=== PATIENT | male | born 1940 | race African-American/Black ===

== ENCOUNTER 2017-05-15 08:24 | Emergency (ER) | payer MEDICARE, OTHER ==
[~2017-05-15] VITALS: Ht 182.9 cm; Wt 110.7 kg
[~2017-05-15 08:24] MED LIST: ABIR250T PO; ASPI-482 PO; CALC600T4 PO; CARV12.5 PO; CRESTOR5 MG PO; DENO60DI SQ; LOSA1TAB22 PO; MAGN30TA2 PO; METF10002 PO; NIAC500T PO; OLME1TAB25 PO; OLME40TA12 PO; OMEG1CAP6 PO; PRED5TAB PO; SITA50TA PO; TROS20TA2 PO; VALS1TAB22 PO; [UNRECOGNIZED DRUG - CODE] IM
--- NOTE | 2017-05-15 08:53 | PHYS DOC ---
General Chief Complaint: HYPERTENSION Stated Complaint: HIGH BP Time Seen by MD: 08:28 Source: patient Exam Limitations: no limitations Problems: History of Present Illness Initial Comments Patient is a 77-year-old male who comes in the ED complaining of high blood pressure. Patient follows with Dr. Sanders, he states that he is currently taking 2 blood pressure medications and had been well controlled but over the past month or so his numbers of been trending upward. He states he's been taking medications as prescribed and has recently started to keep a blood pressure log. This morning systolic pressure home was 170 even after taking his medications so he came in for evaluation. On arrival patient was pressure is 192/109, patient denies headache vision changes focal neurologic symptoms chest pain shortness of breath palpitations nausea or other associated symptoms. He denies any other complaints. Timing/Duration: other Severity: moderate Modifying Factors: improves with medication Associated Symptoms: other Allergies: Coded Allergies: amlodipine besylate (Verified Allergy, Unknown, Swelling, 06/16/14) atorvastatin calcium (Verified Allergy, Unknown, LEG CRAMPS, 06/16/14) simvastatin (Verified Allergy, Unknown, LEG CRAMPS, 06/16/14) Past Medical History Medical History: other (prostate cancer status post surgery and radiation treatments, constipation, hypertension) Surgical History: other (prostate) Social History Smoker: non-smoker Alcohol: none Drugs: none Review of Systems Constitutional: denies chills, denies fever, denies malaise, denies weakness EENTM: denies eye pain, denies blurred vision, denies double vision, denies throat pain, denies throat swelling Respiratory: denies cough, denies shortness of breath, denies wheezing Cardiovascular: denies chest pain, denies palpitations, denies syncope Gastrointestinal: denies abdominal pain, denies diarrhea, denies nausea, denies vomiting, other Musculoskeletal: denies back pain, denies joint swelling, denies neck pain (is not supposed) Psychiatric/Neurological: denies headache, denies numbness, denies paresthesia , denies tingling, denies weakness Hematologic/Lymphatic: denies blood clots, denies easy bleeding, denies easy bruising Physical Exam General Appearance: WD/WN, no apparent distress Eyes: bilateral eye normal inspection, bilateral eye PERRL, bilateral eye EOMI Ear, Nose, Throat: hearing grossly normal, normal ENT inspection Neck: non-tender, supple Respiratory: normal breath sounds, no respiratory distress Cardiovascular: normal peripheral pulses, regular rate, rhythm Gastrointestinal: non tender, soft Back: no CVA tenderness, no vertebral tenderness Extremities: non-tender, normal inspection Neurologic/Psychiatric: production foreman II-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 PATIENT: ASTON VALADEZ ACCOUNT: [id number] : 1940 LOCATION: ER AGE: 77 SEX: M EXAM STATUS: REG ER ORD. PHYSICIAN: MOISES ROACH DO REASON: HTN PROCEDURE: PORTABLE CHEST 1V PORTABLE CHEST 1V dated 05/15/2017 8:55 AM. Comparison: None. Clinical Indication: HYERTENSION Findings: Single upright portable exam performed. Heart and mediastinal contours are within normal limits. Lungs are clear without focal consolidation. Vascular interstitium within normal limits. No pleural effusion or pneumothorax. Impression: No acute radiographic abnormality. Electronically signed by: Mohan Charlton MD (05/15/2017 9:08 AM) [facility] DICTATED AND SIGNED BY: MOHAN CHARLTON MD DATE: 05/15/17906 CC: ANGELIKA SANDERS MD; MOISES ROACH DO ~ 1037: Patient rechecked, current blood pressure 151/88 heart rate is 70 the patient remains asymptomatic. He agrees to keep a written blood pressure log to take with him for his next PCP visit. I discussed prescription and over-the- counter medications, signs and symptoms to monitor as well as indications for urgent return to the department. His questions were answered and he expressed agreement and understanding with the treatment plan. Departure Time of Disposition: 10:38 Disposition: 01 HOME, SELF-CARE Diagnosis: uncontrolled hypertension Condition: IMPROVED Patient Instructions: Hypertension Additional Instructions: Please review the patient education materials given by ED staff. Keep a written blood pressure log and take it with you to your next appointment with Dr. Sanders. Continue current medications. Prescription: Clonidine 0.1 mg, take one twice daily as needed when necessary systolic pressure greater than 180, or diastolic pressure greater than 100 Follow-up with Dr. Sanders in 3-5 days for recheck. Return to ED with new or changing symptoms. MOISES ROACH DO May 15, 2017 08:53
[2017-05-15] MEDS ORDERED: METOPROLOL TARTRATE 5 MG/5 ML VIAL. IV ONE (09:00)
--- NOTE | 2017-05-15 09:11 | RAD ---
PORTABLE CHEST 1V dated 05/15/2017 8:55 AM. Comparison: None. Clinical Indication: HYERTENSION Findings: Single upright portable exam performed. Heart and mediastinal contours are within normal limits. Lungs are clear without focal consolidation. Vascular interstitium within normal limits. No pleural effusion or pneumothorax. Impression: No acute radiographic abnormality. Electronically signed by: Mohan Charlton MD (05/15/2017 9:08 AM) [facility]
[2017-05-15 09:19] LABS: BASO # 0.1 x10^3/uL (0.0-0.2); BASO % 1 % (0-3); EOS # 0.1 x10^3/uL (0.0-0.7); EOS % 2 % (0-3); HEMATOCRIT 44.7 % (39.0-53.0); HEMOGLOBIN 14.8 g/dL (13.0-17.5); LYMPH # 1.6 x10^3/uL (1.0-4.8); LYMPH % 18 % (24-48); MEAN CORPUSCULAR HEMOGLOBIN 31 pg (25-35); MEAN CORPUSCULAR HGB CONC 33 g/dL (31-37); MEAN CORPUSCULAR VOLUME 94 fL (79-100); MONO # 0.8 x10^3/uL (0.0-1.1); MONO % 10 % (0-9); NEUT # 6.4 x10^3uL (1.8-7.7); NEUT % 71 % (31-73); PLATELET COUNT 194 x10^3/uL (140-400); RED BLOOD COUNT 4.73 x10^6/uL (4.30-5.70); RED CELL DISTRIBUTION WIDTH 14.5 % (11.5-14.5)
[2017-05-15 09:33] LABS: CALCIUM 9.6 mg/dL (8.5-10.1); CREATININE 0.9 mg/dL (0.7-1.3); GFR 99.3; POTASSIUM 3.5 mmol/L (3.5-5.1)
[2017-05-15] MEDS ORDERED: cloNIDine HCL 0.1 MG TABLET PO ONE (09:45)
[2017-05-15 09:47] LABS: BILIRUBIN,URINE NEG (NEG); CLARITY,URINE CLEAR; COLOR,URINE YELLOW; GLUCOSE,URINE NEG (NEG)
[2017-05-15 09:48] LABS: AMORPHOUS SEDIMENT,UR PRESENT /HPF; BACTERIA,URINE 0 /HPF (0-FEW); NITRITE,URINE NEG (NEG); SQUAMOUS EPITHELIAL CELL,UR OCC /LPF; UROBILINOGEN,URINE 0.2 mg/dL (0.2 mg/dL); WBC,URINE RARE /HPF (0-4)
[2017-05-15] MEDS ORDERED: CLON0.1T PO (10:36)
[2017-05-15 11:04] VITALS: BP 127/74
--- NOTE | 2017-05-15 19:09 | EKG ---
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
== END 2017-05-15 10:55 | disposition home or self-care (01) ==
LOC: ER 08:24
DX: I10 Essential (primary) hypertension (principal); Z88.8 Allergy status to other drugs, medicaments and biological substances
CPT/HCPCS: 36415; 71045; 80048; 81001; 83880; 84484; 85025; 93005; 99285-25

== ENCOUNTER 2017-10-18 16:36 | Emergency (ER) | payer MEDICARE, OTHER ==
[~2017-10-18] VITALS: Ht 182.9 cm; Wt 108.9 kg
[~2017-10-18 16:36] MED LIST changes: +CLON0.1T PO; -METF10002 PO; +METF10003 PO
--- NOTE | 2017-10-18 17:10 | EKG ---
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
--- NOTE | 2017-10-18 17:32 | RAD ---
PORTABLE CHEST 1V Clinical History: Generalized weakness, lack of appetite Technique: AP view of the chest was obtained at 10/18/2017 5:00 PM. Comparison: May 15, 2017. Findings: The cardiomediastinal silhouette is normal. The pulmonary vasculature is normal. The lungs and pleural margins are clear. Impression: No evidence of an acute cardiopulmonary process. Electronically signed by: Tong Chapin III, MD (10/18/2017 5:28 PM) [facility]
[2017-10-18 17:48] LABS: BASO # 0.1 x10^3/uL (0.0-0.2); BASO % 1 % (0-3); EOS # 0.4 x10^3/uL (0.0-0.7); EOS % 7 % (0-3); HEMATOCRIT 45.1 % (39.0-53.0); HEMOGLOBIN 15.1 g/dL (13.0-17.5); LYMPH # 1.3 x10^3/uL (1.0-4.8); LYMPH % 22 % (24-48); MEAN CORPUSCULAR HEMOGLOBIN 30 pg (25-35); MEAN CORPUSCULAR HGB CONC 33 g/dL (31-37); MEAN CORPUSCULAR VOLUME 90 fL (79-100); MONO # 0.7 x10^3/uL (0.0-1.1); MONO % 13 % (0-9); NEUT # 3.4 x10^3uL (1.8-7.7); NEUT % 58 % (31-73); PLATELET COUNT 280 x10^3/uL (140-400); RED BLOOD COUNT 5.01 x10^6/uL (4.30-5.70); RED CELL DISTRIBUTION WIDTH 16.1 % (11.5-14.5); WHITE BLOOD COUNT 5.8 x10^3/uL (4.0-11.0)
[2017-10-18] MEDS ORDERED: methylPREDNISolone SOD SUCC PF 125 MG/2 ML VIAL. IV ONE (18:00)
--- NOTE | 2017-10-18 18:06 | PHYS DOC ---
Past History Past Medical History: Cancer, Constipation, Hypertension, Other Past Surgical History: Other Alcohol Use: None Drug Use: None Adult General Chief Complaint Chief Complaint: not feeling good [facility] HPI 77-year-old male patient state he seen by his primary care physician 2 weeks ago and by mistake stopped prednisone that used to take 5 mg twice a day for a long time. Patient complaining of hurting all over and not feeling good since then and complaining of decrease of appetite. Patient denies chest pain, shortness of breath, focal neuro deficit, urinary symptom, nausea and vomiting. Patient' states he has history of prostate and kidney cancer and he is urologist recommended to stop cancer medication and he became depressed and stopped eating fluid and a stained dark room and doesn't talk. Patient states he had this problem several times but doesn't take any antidepressant medication. Patient denies suicidal and homicidal ideation and hallucination. Review of Systems Review of Systems Constitutional: Denies fever or chills [] Eyes: Denies change in visual acuity, redness, or eye pain [] HENT: Denies nasal congestion or sore throat [] Respiratory: Denies cough or shortness of breath [] Cardiovascular: No additional information not addressed in HPI [] GI: Denies abdominal pain, nausea, vomiting, bloody stools or diarrhea [] : Denies dysuria or hematuria [] Musculoskeletal: Denies back pain or joint pain [] Integument: Denies rash or skin lesions [] Neurologic: Denies headache, focal weakness or sensory changes [] Endocrine: Denies polyuria or polydipsia [] All other systems were reviewed and found to be within normal limits, except as documented in this note. Allergies Allergies Allergies Coded Allergies Type Severity Reaction Last Updated Verified amlodipine besylate Allergy Unknown Swelling 06/16/14 Yes atorvastatin calcium Allergy Unknown LEG CRAMPS 06/16/14 Yes simvastatin Allergy Unknown LEG CRAMPS 06/16/14 Yes Physical Exam Physical Exam Constitutional: Well developed, well nourished, mild acute distress, non-toxic appearance. [] HENT: Normocephalic, atraumatic, oropharynx moist, no oral exudates, nose normal. [] Eyes: PERRLA, EOMI, conjunctiva normal, no discharge. [] Neck: Normal range of motion, no tenderness, supple, no stridor. [] Cardiovascular:Heart rate regular rhythm, no murmur [] Lungs & Thorax: Bilateral breath sounds clear to auscultation [] Abdomen: Bowel sounds normal, soft, no tenderness, no masses, no pulsatile masses. [] Skin: Warm, dry, no erythema, no rash. [] Back: No tenderness, no CVA tenderness. [] Extremities: No tenderness, no cyanosis, no clubbing, ROM intact, no edema. [] Neurologic: Alert and oriented X 3, normal motor function, normal sensory function, no focal deficits noted. [] Psychologic: Affect depressed, judgement normal, mood normal. [] EKG EKG EKG interpreted by me. EKG at 1707 showed normal sinus rhythm at rate of 88 with multiple artifact, left axis deviation, left anterior fascicular block, poor R wave practicing in anteroseptal leads, no acute ST and T-wave abnormalities[] Radiology/Procedures Radiology/Procedures [] Course & Med Decision Making Course & Med Decision Making Pertinent Labs and Imaging are pending. Patient care transferred to Dr. Gardiner. at [address] Snyder at 6 PM patient apparently has had some issues with bodyaches fatigue and decreased appetite on and off all long-standing basis but seemed to get worse last week she was treated for a UTI at [facility] with Cipro. I was asked what her lab work and a urine the urinalysis did show evidence of a persistent UTI per prescription for Keflex was given. Other lab work is essentially fairly reasonable overall actually except the calcium is mildly elevated he does have a history of prostate cancer he was advised to limit any extra calcium intake stay hydrated I switched his losartan HCTZ to plain losartan and recommended he have a follow-up blood check within one to 2 weeks Family is agreeable to this plan a feel he is appropriate to go home and I agree based on the lab work and vital signs. Dragon Disclaimer Dragon Disclaimer This electronic medical record was generated, in whole or in part, using a voice recognition dictation system. Departure Departure: Impression: Primary Impression: Hypercalcemia Additional Impression: Urinary tract infection Referrals: ANGELIKA FREEMAN MD (PCP) Scripts Losartan Potassium (LOSARTAN POTASSIUM) 100 Mg Tablet 100 MG PO DAILY, #30 TAB Prov: AZEB GARDINER MD 10/18/17 Cephalexin (CEPHALEXIN) 500 Mg Capsule 1 CAP PO QID, #40 CAP Prov: AZEB GARDINER MD 10/18/17 Problem Qualifiers SAI NAPOLES MD Oct 18, 2017 18:06 AZEB GARDINER MD Oct 18, 2017 21:11
[2017-10-18 18:32] LABS: BILIRUBIN,URINE NEG (NEG); CLARITY,URINE HAZY; COLOR,URINE YELLOW; GLUCOSE,URINE NEG (NEG)
[2017-10-18 18:33] LABS: BACTERIA,URINE 0 /HPF (0-FEW); NITRITE,URINE NEG (NEG); SQUAMOUS EPITHELIAL CELL,UR FEW /LPF; UROBILINOGEN,URINE 0.2 mg/dL (0.2 mg/dL)
[2017-10-18 18:34] LABS: HYALINE CASTS, URINE MANY /HPF
[2017-10-18 19:01] LABS: ALBUMIN 2.9 g/dL (3.4-5.0); CALCIUM 11.5 mg/dL (8.5-10.1); CREATININE 1.2 mg/dL (0.7-1.3); GFR 71.2; POTASSIUM 3.3 mmol/L (3.5-5.1); TOTAL BILIRUBIN 0.7 mg/dL (0.2-1.0); TOTAL PROTEIN 5.7 g/dL (6.4-8.2)
[2017-10-18] MEDS ORDERED: CEPH500C PO (20:04)
[2017-10-18] MEDS ORDERED: LOSA100T6 PO (20:04)
[2017-10-18 20:28] VITALS: BP 136/84
== END 2017-10-18 20:31 | disposition home or self-care (01) ==
LOC: ER 16:36
DX: R73.9 Hyperglycemia, unspecified (principal); N39.0 Urinary tract infection, site not specified; I10 Essential (primary) hypertension; Z88.8 Allergy status to other drugs, medicaments and biological substances
CPT/HCPCS: 36415; 71045; 80053; 81001; 83605; 84484; 85025; 85610; 87086; 93005; 96374; 99285; J2930

== ENCOUNTER 2017-10-19 15:57 | Emergency (ER) | payer MEDICARE, OTHER ==
[~2017-10-19 15:57] MED LIST changes: +CEPH500C PO; +LOSA100T6 PO
--- NOTE | 2017-10-19 16:28 | PHYS DOC ---
Past History Past Medical History: Cancer, Constipation, Diabetes, Hypertension, UTI, Other Past Surgical History: Other Alcohol Use: None Drug Use: None Adult General Chief Complaint Chief Complaint: DEPRESSION HPI HPI Patient is a very pleasant 77-year-old male who presents for evaluation of depression. EMS was called for abdominal pain and the patient was actually seen in this emergency department last night for abdominal pain. He had labs and imaging performed which were unremarkable. When EMS arrived at the home the patient had a bowel movement and his abdominal pain completely resolved. His still wanted him transferred to the hospital for evaluation of depression. They both deny that he is having any suicidal or homicidal thoughts. He seems depressed about his medical problems but states he would not harm himself. Will request a telepsych consult. The pt states he does not have a therapist. Review of Systems Review of Systems Constitutional: Denies fever or chills [] Eyes: Denies change in visual acuity, redness, or eye pain [] HENT: Denies nasal congestion or sore throat [] Respiratory: Denies cough or shortness of breath [] Cardiovascular: No additional information not addressed in HPI [] GI: Denies abdominal pain, nausea, vomiting, bloody stools or diarrhea [] : Denies dysuria or hematuria [] Musculoskeletal: Denies back pain or joint pain [] Integument: Denies rash or skin lesions [] Neurologic: Denies headache, focal weakness or sensory changes [] Endocrine: Denies polyuria or polydipsia [] Psych: appears sad, denies si/hi All other systems were reviewed and found to be within normal limits, except as documented in this note. Allergies Allergies Allergies Coded Allergies Type Severity Reaction Last Updated Verified amlodipine besylate Allergy Unknown Swelling 06/16/14 Yes atorvastatin calcium Allergy Unknown LEG CRAMPS 06/16/14 Yes simvastatin Allergy Unknown LEG CRAMPS 06/16/14 Yes Physical Exam Physical Exam Constitutional: Well developed, well nourished, no acute distress, non-toxic appearance. [] HENT: Normocephalic, atraumatic, bilateral external ears normal, oropharynx moist, no oral exudates, nose normal. [] Eyes: PERRLA, EOMI, conjunctiva normal, no discharge. [] Neck: Normal range of motion, no tenderness, supple, no stridor. [] Cardiovascular:Heart rate regular rhythm, no murmur [] Lungs & Thorax: Bilateral breath sounds clear to auscultation [] Abdomen: Bowel sounds normal, soft, no tenderness, no masses, no pulsatile masses. [] Skin: Warm, dry, no erythema, no rash. [] Back: No tenderness, no CVA tenderness. [] Extremities: No tenderness, no cyanosis, no clubbing, ROM intact, no edema. [] Neurologic: Alert and oriented X 3, normal motor function, normal sensory function, no focal deficits noted. [] Psychologic: judgement normal [] Flat affect, admits to depression, denies SI/HI EKG EKG [] Radiology/Procedures Radiology/Procedures [] Course & Med Decision Making Course & Med Decision Making Pertinent Labs and Imaging studies reviewed. (See chart for details) @1725 - Telepsych physician is speaking with the patient. @1750 - Awaiting report from psychiatrist. @1800 - Pt care transferred from Dr. Crisostomo to Dr. Lorin Falcon at this time. Anticipate discharge home after receiving fax/recommendations from psychiatry. Care assumed by this provider. Telepsych referral reviewed. No HI/SI. Recommendations are to send patient home with local PCP f/u. Ben Disclaimer Ben Disclaimer This electronic medical record was generated, in whole or in part, using a voice recognition dictation system. Departure Departure: Impression: Primary Impression: Non-suicidal depressed mood Disposition: 01 HOME, SELF-CARE Condition: STABLE Referrals: ANGELIKA FREEMAN MD (PCP) ANIBAL CRISOSTOMO DO Oct 19, 2017 16:28 RAHEEM FALCON DO Oct 20, 2017 03:23
[2017-10-19 18:27] VITALS: BP 160/89
== END 2017-10-19 18:27 | disposition home or self-care (01) ==
LOC: ER 15:57
DX: F32.9 Major depressive disorder, single episode, unspecified (principal); E11.9 Type 2 diabetes mellitus without complications; I10 Essential (primary) hypertension; Z87.440 Personal history of urinary (tract) infections; Z88.8 Allergy status to other drugs, medicaments and biological substances
CPT/HCPCS: 99284

== ENCOUNTER 2020-07-26 11:05 | Observation (INO) | payer MEDICARE, OTHER ==
[~2020-07-26] VITALS: Ht 182.9 cm; Wt 94.4 kg
[~2020-07-26 11:05] MED LIST changes: -CALC600T4 PO; +CALC600T60 PO; +LOSA100T14 PO; -LOSA100T6 PO; -METF10003 PO; +METF10007 PO; -VALS1TAB22 PO; +VALS1TAB23 PO
--- NOTE | 2020-07-26 11:44 | PHYS DOC ---
Past History Past Medical History: Cancer, Constipation, Diabetes, Hypertension, UTI, Other Past Surgical History: Other Alcohol Use: None Drug Use: None General Adult EDM: Chief Complaint: SYNCOPE HPI: HPI: Patient is a 80-year-old male coming in via EMS for a syncopal episode. Patient states he was sitting in his living room when he started to feel lightheaded. Patient his blood sugar might be low. Did not breakfast yet and wants going to prepare food. Patient states he did not make it to the kitchen but fell. stated he struck his head on the tile floor. Patient is unsure of how long he was out. Says similar episodes in the past and this is about his third or fourth time of syncope last was 1 year ago. He strongly states he was worked up without any conclusive diagnosis to why he has syncopized. Patient has a history of stage IV prostate cancer and just started a new infusion medication 2 days ago. Denies any history of heart disease or blood clots. Not on any blood thinners. No other recent illness or sick contacts, has had both of his [employer] vaccines. Review of Systems: Review of Systems: All other systems within normal limits except for as noted in the HPI Allergies: Allergies: Allergies Coded Allergies Type Severity Reaction Last Updated Verified amlodipine besylate Allergy Unknown Swelling 06/16/14 Yes atorvastatin calcium Allergy Unknown LEG CRAMPS 06/16/14 Yes simvastatin Allergy Unknown LEG CRAMPS 06/16/14 Yes Physical Exam: PE: Constitutional: Well developed, well nourished, no acute distress, non-toxic appearance. [] HENT: Normocephalic, atraumatic, bilateral external ears normal, nose normal. [] Eyes: PERRLA, conjunctiva normal, no discharge. [] Neck: No rigidity, supple, no stridor. [] Cardiovascular: Regular rate and rhythm, brisk cap refill [] Lungs & Thorax: Non labored symmetric respirations, no tachypnea or respiratory distress [] Abdomen: Soft, nondistended, nontender, no pulsatile masses.. Skin: Warm, dry, no erythema, no rash. [] Back: Unremarkable Extremities: No deformities, range of motion grossly intact, no lower extremity edema [] Neurologic: Alert and oriented X 3, no focal deficits noted. [] Psychologic: Affect normal, judgement normal, mood normal. [] Current Patient Data: Vital Signs: Vital Signs Date Time Temp Pulse Resp B/P (MAP) Pulse Ox O2 Delivery O2 Flow Rate FiO2 07/26/20 11:11 98.4 76 16 127/72 (90) 100 Room Air EKG: EKG: Sinus rhythm, left axis deviation, no ST elevation or depression, no ectopy. Normal intervals. [] Radiology/Procedures: Radiology/Procedures: EXAM: Head and cervical spine CT without contrast. HISTORY: Fall. TECHNIQUE: Computed tomographic images of the head and cervical spine were obtained without contrast. *One or more of the following individualized dose reduction techniques were utilized for this examination: 1. Automated exposure control. 2. Adjustment of the mA and/or kV according to patient size. 3. Use of iterative reconstruction technique. COMPARISON: None. FINDINGS: Head: There is no convincing acute or subacute hemorrhage. There is curvilinear hyperdensity within the bifrontal extra-axial space due to prominent cortical vessels. There is no mass effect or midline shift. There is no hydrocephalus. There is cerebral atrophy. The visualized portions of the paranasal sinuses are unremarkable. There has been lens surgery. The mastoid air cells are clear. There is no calvarial lesion. Cervical spine: There is cervical kyphosis. There is minimal listhesis at m ultiple levels. There is multilevel endplate remodeling with disc space narrowing and osteophytosis and Schmorl's node formation. There is multilevel facet arthropathy. There are few tiny benign bone islands and osseous hemangiomas. No acute fracture is seen. The combination of degenerative changes results in and mild to moderate right and mild left foraminal stenosis at C2-C3, severe bilateral foraminal stenosis at C3-C4, mild bilateral foraminal stenosis at C4-C5, severe right and moderate left foraminal stenosis at C5-C6 and mild right and severe left foraminal stenosis at C6-C7. There is a right internal jugular catheter partially included on the [id number]. The lung apices are unremarkable. IMPRESSION: 1. No acute intracranial finding or evidence of acute cervical spine trauma. 2. Cerebral volume loss with increased bifrontal extra-axial space. 3. Multiple level degenerative change involving the cervical spine, resulting in stenosis as described above. EXAM: CT angiography of the chest, abdomen and pelvis with intravenous contrast. HISTORY: Fall. TECHNIQUE: Computed tomographic images of the chest, abdomen and pelvis were obtained following the administration of intravenous contrast according to angiography protocol. Multiplanar reformatting was performed and three dimensional maximum intensity projection images were obtained. *One or more of the following individualized dose reduction techniques were utilized for this examination: 1. Automated exposure control. 2. Adjustment of the mA and/or kV according to patient size. 3. Use of iterative reconstruction technique. COMPARISON: 08/18/2014. FINDINGS: Chest: There is no evidence of aortic aneurysm or dissection. There are prominent central pulmonary arteries suggesting a component of chronic pulmonary artery hypertension. No pulmonary embolism is seen. There is limited evaluation of the distal pulmonary arteries due to respiratory motion. There is a right internal jugular catheter with the tip in the right atrium. There is no lymphadenopathy. There is gynecomastia. There is posterior dependent and basilar atelectasis. There is no pneumothorax or pleural effusion. There is linear left basilar and lingular atelectasis or scarring. There is no suspicious pulmonary nodule. There are few sclerotic osseous lesions, the largest of which are seen within the lateral left fourth rib, L1, and T6. There are few additional smaller sclerotic lesions within the thoracic spine and sternum and proximal right humerus. There is a hemangioma within T6. There is multilevel degenerative change. There is a moderate chronic appearing compression fracture of T12. Abdomen and pelvis: Evaluation is limited due to significant motion. No suspicious hepatic lesion is seen. The gallbladder, pancreas, spleen, adrenal glands and stomach are unremarkable. There is bilateral renal cortical scarring. There are tiny renal cortical cysts. There is a 4 mm nonobstructing left renal stone. There is a dilated right renal collecting system. No abnormally thickened or dilated loop of bowel is seen. There is a large amount of stool within the colon. There is distal colonic diverticulosis. The bladder is unremarkable. The prostate is absent. The aorta is normal in caliber. There is no lymphadenopathy. There is a tiny amount of fluid within the small umbilical hernia. There are several sclerotic lesions within the vertebral column and bony pelvis, the largest of which are seen within the right sacrum and right iliac bone and L1. There is grade 1 anterolisthesis of L5 on S1 with associated severe bilateral foraminal stenosis. IMPRESSION: 1. No evidence of central pulmonary embolism or aortic dissection. 2. Multiple sclerotic lesions throughout the visualized osseous structures. Given a surgically absent prostate likely due to prostate malignancy, these are likely due to osseous metastases. These have increased compared to the prior exam. The possibility of superimposed bone islands is not excluded. 3. Stable moderate compression fracture of T12. No acute fracture is seen. 4. Multiple bilateral renal cysts and bilateral renal cortical scarring and left nephrolithiasis. There is also a dilated right renal collecting system likely due to mild hydronephrosis. No convincing obstructing lesion is seen. 5. Colonic diverticulosis. [] Heart Score: C/O Chest Pain: No Risk Factors: Risk Factors: DM, Current or recent (<one month) smoker, HTN, HLP, family history of CAD, obesity. Risk Scores: Score 0 - 3: 2.5% MACE over next 6 weeks - Discharge Home Score 4 - 6: 20.3% MACE over next 6 weeks - Admit for Clinical Observation Score 7 - 10: 72.7% MACE over next 6 weeks - Early Invasive Strategies Course & Med Decision Making: Course & Med Decision Making Pertinent Labs and Imaging studies reviewed. (See chart for details) Discussed with hospitalist, admit for syncope. Hospitalist consulted his oncologist who stated he had 2 mg of Decadron yesterday. Discussed is likely accounting for the acute phase leukocytosis as there are no other sources of infection identified. [] Dragon Disclaimer: Dragon Disclaimer: This electronic medical record was generated, in whole or in part, using a voice recognition dictation system. Departure Departure: Impression: Primary Impression: Syncope Additional Impression: Leukocytosis Disposition: ADMITTED INPATIENT Admitting Physician: Jose Mays Condition: STABLE Referrals: ANGELIKA FREEMAN MD (PCP) BERTRAM QUIGLEY MD Jul 26, 2020 11:44
--- NOTE | 2020-07-26 12:08 | EKG ---
[address] [address] Test Date: 2020-07-26 Test Time: 11:16:27 Pat Name: ASTON VALADEZ Department: Room: Gender: M Industrial Relations Director: VINCENT : 1940 Requested By: BERTRAM QUIGLEY Order Number: [id number] Reading MD: Measurements Intervals [place] Rate: 67 P: 51 AK: 208 QRS: -24 QRSD: 88 T: 34 QT: 388 QTc: 413 Interpretive Statements SINUS RHYTHM LEFTWARD AXIS OTHERWISE NORMAL ECG RI6.02 No previous ECG available for comparison
[2020-07-26 12:23] LABS: BASO # 0.2 x10^3/uL (0.0-0.2); BASO % 1 % (0-3); EOS % 0 % (0-3); HEMATOCRIT 34.4 % (39.0-53.0); HEMOGLOBIN 11.1 g/dL (13.0-17.5); LYMPH # 0.5 x10^3/uL (1.0-4.8); LYMPH % 1 % (24-48); MEAN CORPUSCULAR HEMOGLOBIN 31 pg (25-35); MEAN CORPUSCULAR HGB CONC 32 g/dL (31-37); MEAN CORPUSCULAR VOLUME 96 fL (79-100); MONO # 0.7 x10^3/uL (0.0-1.1); MONO % 2 % (0-9); NEUT # 33.6 x10^3uL (1.8-7.7); NEUT % 96 % (31-73); PLATELET COUNT 181 x10^3/uL (140-400); RED BLOOD COUNT 3.59 x10^6/uL (4.30-5.70); RED CELL DISTRIBUTION WIDTH 17.9 % (11.5-14.5)
[2020-07-26 13:02] LABS: CALCIUM 8.6 mg/dL (8.5-10.1); GFR 87.2; POTASSIUM 3.4 mmol/L (3.5-5.1)
[2020-07-26 13:17] LABS: ALBUMIN 2.9 g/dL (3.4-5.0); MAGNESIUM 1.7 mg/dL (1.8-2.4); PHOSPHORUS 2.5 mg/dL (2.6-4.7); TOTAL BILIRUBIN 0.4 mg/dL (0.2-1.0); TOTAL PROTEIN 5.8 g/dL (6.4-8.2)
[2020-07-26 13:19] LABS: BACTERIA,URINE 0 /HPF (0-FEW); BILIRUBIN,URINE NEG (NEG); CLARITY,URINE CLEAR; COLOR,URINE YELLOW; GLUCOSE,URINE NEG (NEG); NITRITE,URINE NEG (NEG); RBC,URINE OCC /HPF (0-2); UROBILINOGEN,URINE 0.2 mg/dL (0.2 mg/dL)
[2020-07-26] MEDS ORDERED: IV NORMAL SALINE 500ML 500 ML IV ONE (13:30)
[2020-07-26] MEDS ORDERED: IOHEXOL 350 MG/ML 100 ML VIAL. IV ONE (14:00)
[2020-07-26] MEDS ORDERED: CONTRAST GIVEN. MC PRN (14:00)
--- NOTE | 2020-07-26 14:36 | RAD ---
EXAM: Head and cervical spine CT without contrast. HISTORY: Fall. TECHNIQUE: Computed tomographic images of the head and cervical spine were obtained without contrast. *One or more of the following individualized dose reduction techniques were utilized for this examina tion: 1. Automated exposure control. 2. Adjustment of the mA and/or kV according to patient size. 3. Use of iterative reconstruction technique. COMPARISON: None. FINDINGS: Head: There is no convincing acute or subacute hemorrhage. There is curvilinear hyperdensity within t he bifrontal extra-axial space due to prominent cortical vessels. There is no mass effect or midline shift. There is no hydrocephalus. There is cerebral atrophy. The visualized portions of the paranasal sinuses are unremarkable. There has been lens surgery. The mastoid air cells are clear. There is no calvarial lesion. Cervical spine: There is cervical kyphosis. There is minimal listhesis at multiple levels. There is m ultilevel endplate remodeling with disc space narrowing and osteophytosis and Schmorl's node formatio n. There is multilevel facet arthropathy. There are few tiny benign bone islands and osseous hemangio mas. No acute fracture is seen. The combination of degenerative changes results in and mild to modera te right and mild left foraminal stenosis at C2-C3, severe bilateral foraminal stenosis at C3-C4, mil d bilateral foraminal stenosis at C4-C5, severe right and moderate left foraminal stenosis at C5-C6 a nd mild right and severe left foraminal stenosis at C6-C7. There is a right internal jugular catheter partially included on the [id number]. The lung apices are unremarkable. IMPRESSION: 1. No acute intracranial finding or evidence of acute cervical spine trauma. 2. Cerebral volume loss with increased bifrontal extra-axial space. 3. Multiple level degenerative change involving the cervical spine, resulting in stenosis as describe d above. Electronically signed by: Marisabel Cheng MD (07/26/2020 2:33 PM) [id number]
[2020-07-26 15:02] LABS: % LYMPHS 1 % (24-48); % MONOS 3 % (0-10); % SEGS 96 % (35-66)
--- NOTE | 2020-07-26 15:05 | RAD ---
EXAM: CT angiography of the chest, abdomen and pelvis with intravenous contrast. HISTORY: Fall. TECHNIQUE: Computed tomographic images of the chest, abdomen and pelvis were obtained following the a dministration of intravenous contrast according to angiography protocol. Multiplanar reformatting was performed and three dimensional maximum intensity projection images were obtained. *One or more of the following individualized dose reduction techniques were utilized for this examina tion: 1. Automated exposure control. 2. Adjustment of the mA and/or kV according to patient size. 3. Use of iterative reconstruction technique. COMPARISON: 08/18/2014. FINDINGS: Chest: There is no evidence of aortic aneurysm or dissection. There are prominent central p ulmonary arteries suggesting a component of chronic pulmonary artery hypertension. No pulmonary embol ism is seen. There is limited evaluation of the distal pulmonary arteries due to respiratory motion. There is a right internal jugular catheter with the tip in the right atrium. There is no lymphadenopa thy. There is gynecomastia. There is posterior dependent and basilar atelectasis. There is no pneumot horax or pleural effusion. There is linear left basilar and lingular atelectasis or scarring. There i s no suspicious pulmonary nodule. There are few sclerotic osseous lesions, the largest of which are s een within the lateral left fourth rib, L1, and T6. There are few additional smaller sclerotic lesion s within the thoracic spine and sternum and proximal right humerus. There is a hemangioma within T6. There is multilevel degenerative change. There is a moderate chronic appearing compression fracture o f T12. Abdomen and pelvis: Evaluation is limited due to significant motion. No suspicious hepatic lesion is seen. The gallbladder, pancreas, spleen, adrenal glands and stomach are unremarkable. There is bilate ral renal cortical scarring. There are tiny renal cortical cysts. There is a 4 mm nonobstructing left renal stone. There is a dilated right renal collecting system. No abnormally thickened or dilated lo op of bowel is seen. There is a large amount of stool within the colon. There is distal colonic diver ticulosis. The bladder is unremarkable. The prostate is absent. The aorta is normal in caliber. There is no lymphadenopathy. There is a tiny amount of fluid within the small umbilical hernia. There are several sclerotic lesions within the vertebral column and bony pelvis, the largest of which are seen within the right sacrum and right iliac bone and L1. There is grade 1 anterolisthesis of L5 on S1 wit h associated severe bilateral foraminal stenosis. IMPRESSION: 1. No evidence of central pulmonary embolism or aortic dissection. 2. Multiple sclerotic lesions throughout the visualized osseous structures. Given a surgically absent prostate likely due to prostate malignancy, these are likely due to osseous metastases. These have i ncreased compared to the prior exam. The possibility of superimposed bone islands is not excluded. 3. Stable moderate compression fracture of T12. No acute fracture is seen. 4. Multiple bilateral renal cysts and bilateral renal cortical scarring and left nephrolithiasis. The re is also a dilated right renal collecting system likely due to mild hydronephrosis. No convincing o bstructing lesion is seen. 5. Colonic diverticulosis. Electronically signed by: Marisabel Cheng MD (07/26/2020 3:03 PM) [id number]
[2020-07-26 15:06] LABS: PLT ESTIMATE ADEQUATE (ADEQUATE)
[2020-07-26] MEDS ORDERED: ACETAMINOPHEN 325 MG TABLET PO PRN (16:15)
[2020-07-26] MEDS ORDERED: ONDANSETRON PF 4 MG/2 ML VIAL. IVP PRN (16:15)
[2020-07-26 18:58] VITALS: BP 114/65
--- NOTE | 2020-07-26 19:00 | NUR ---
Patient arrived to the unit via EMS on a gurney. Patient is alert and oriented. Patient was oriented to unit routines. Patient is currently in bed with side rails up X's 2 and call light in reach.
[2020-07-26] MEDS: IV NORMAL SALINE 1,000ML 1,000 ML IV SCH (19:45)
[2020-07-26] MEDS ORDERED: LEUP1KIT SQ (20:02)
[2020-07-26] MEDS ORDERED: POTA20TA4 PO (20:02)
[2020-07-26] MEDS ORDERED: PEGF6SYR SQ (20:02)
[2020-07-26] MEDS ORDERED: GABA600T7 PO (20:02)
[2020-07-26] MEDS ORDERED: OXYB5TAB10 PO (20:02)
[2020-07-26] MEDS ORDERED: PANT40TA6 PO (20:02)
[2020-07-26] MEDS ORDERED: CALC1CAP7 PO (20:02)
[2020-07-26] MEDS ORDERED: AMLO-186 PO (20:02)
[2020-07-26] MEDS ORDERED: SITA1TAB7 PO (20:02)
[2020-07-26] MEDS ORDERED: HYDR12.58 PO (20:02)
[2020-07-26 22:10] VITALS: BP 100/55
--- NOTE | 2020-07-26 23:34 | NUR ---
PT comfortable throughout shift. PT activating call light when needing to use the urinal to ensure safety. PT denies dizziness and appears to be steady. Advised to remain in bed throughout night and continue to call for assistance.
[2020-07-27] VITALS (7 sets, daily range): BP systolic 107–137; BP diastolic 60–77
[2020-07-27] MEDS: IV NORMAL SALINE 1,000ML 1,000 ML IV SCH (05:52)
[2020-07-27 06:46] LABS: BASO # 0.2 x10^3/uL (0.0-0.2); BASO % 1 % (0-3); EOS % 0 % (0-3); HEMATOCRIT 34.6 % (39.0-53.0); HEMOGLOBIN 11.1 g/dL (13.0-17.5); LYMPH # 0.5 x10^3/uL (1.0-4.8); LYMPH % 1 % (24-48); MEAN CORPUSCULAR HEMOGLOBIN 31 pg (25-35); MEAN CORPUSCULAR HGB CONC 32 g/dL (31-37); MEAN CORPUSCULAR VOLUME 96 fL (79-100); MONO # 0.5 x10^3/uL (0.0-1.1); MONO % 1 % (0-9); NEUT # 41.1 x10^3uL (1.8-7.7); NEUT % 97 % (31-73); PLATELET COUNT 168 x10^3/uL (140-400); RED BLOOD COUNT 3.62 x10^6/uL (4.30-5.70); RED CELL DISTRIBUTION WIDTH 18.2 % (11.5-14.5)
[2020-07-27 07:03] LABS: ALBUMIN 2.7 g/dL (3.4-5.0); ALBUMIN/GLOBULIN RATIO 1.2 (1.0-1.7); CALCIUM 7.7 mg/dL (8.5-10.1); CREATININE 0.9 mg/dL (0.7-1.3); GFR 98.5; POTASSIUM 3.5 mmol/L (3.5-5.1); TOTAL BILIRUBIN 0.3 mg/dL (0.2-1.0)
[2020-07-27 07:10] LABS: WHITE BLOOD COUNT 42.4 x10^3/uL (4.0-11.0)
--- NOTE | 2020-07-27 08:13 | NUR ---
order obtained for cardiology. consult called at this time.
[2020-07-27] MEDS ORDERED: [UNRECOGNIZED DRUG - OTHER] SQ SCH (08:15)
[2020-07-27] MEDS ORDERED: POTASSIUM CHLORIDE 20 MEQ TABLET.ER. PO ONE (08:15)
[2020-07-27] MEDS ORDERED: LEUPROLIDE ACETATE 7.5 MG SQ SCH (08:15)
[2020-07-27] MEDS: PANTOPRAZOLE 40 MG TABLET. PO SCH (08:55)
[2020-07-27] MEDS ORDERED: METFORMIN HCL PO SCH (09:00)
[2020-07-27] MEDS ORDERED: SITAGLIPTIN PHOS PO SCH (09:00)
[2020-07-27] MEDS: MAGNESIUM OXIDE 400 MG TABLET PO SCH (09:00)
[2020-07-27] MEDS: GABAPENTIN 300 MG CAPSULE. PO SCH ×3 (09:20→21:30)
[2020-07-27] MEDS: OXYBUTYNIN CHLORIDE 5 MG TABLET PO SCH ×2 (09:20→21:30)
[2020-07-27] MEDS: ASPIRIN ENTERIC COATED 81 MG TABLET.DR. PO SCH (09:20)
[2020-07-27] MEDS: CALCIUM CARB/VIT D3 500/200 TABLET PO SCH (09:20)
[2020-07-27] MEDS: LINAGLIPTIN 5 MG TABLET PO SCH (09:21)
[2020-07-27] MEDS: OMEGA-3 FATTY ACIDS/FISH OIL 1,000 MG CAPSULE. PO SCH (09:21)
[2020-07-27] MEDS: predniSONE 5 MG TABLET PO SCH ×2 (09:21→21:30)
--- NOTE | 2020-07-27 10:42 | RAD ---
EXAM: Carotid Doppler sonogram. HISTORY: Syncope. Atherosclerosis. TECHNIQUE: Pepper scale and color Doppler sonographic evaluation of the neck with spectral waveform christopher lysis was performed and static images are submitted for review. FINDINGS: The internal carotid arteries are tortuous. The peak systolic velocity within the right common carotid artery is 96 cm/sec. The peak systolic francheska ocity within the right internal carotid artery is 109 cm/sec and the end diastolic velocity within th e right internal carotid artery is 29 cm/sec. The right ICA/CCA ratio is 1.3. The peak systolic velocity within the left common carotid artery is 105 cm/sec. The peak systolic francheska ocity within the left internal carotid artery is 120 cm/sec and the end diastolic velocity within the left internal carotid artery is 39 cm/sec. The left ICA/CCA ratio is 1.3. There is normal antegrade flow within both vertebral arteries. IMPRESSION: No Doppler evidence of greater than 50 percent stenosis involving the internal carotid ar teries. PQRS Compliance Statement - Stenosis calculations for CT, MR and conventional angiography are based u nav measurement of the distal ICA diameter in accordance with the NASCET methodology. Stenosis calcu lations for carotid ultrasound studies are derived from validated velocity criteria which are known t o correlate with the NASCET methodology. Electronically signed by: Marisabel Cheng MD (07/27/2020 10:40 AM) [id number]
--- NOTE | 2020-07-27 13:16 | NUR ---
nursing note consult neurology consult paged, dr silver return call and states okay. melody márquez.
--- NOTE | 2020-07-27 13:20 | PDOC2 ---
CONSULT DOS: DATE: 07/27/20 TIME: 13:20 Reason for Consult: Syncope Referring Physician: Dr. Mays Chief Complaint Syncope Source: Chart review, Patient Problem List Problems Medical Problems: (1) Leukocytosis Status: Acute (2) Syncope Status: Acute History of Present Illness 80-year-old male was apparently was sitting in his living room and was about to go to his kitchen to prepare food when he fell down and passed out. He stated that he had to similar episodes in the past. He has intermittent episodes of dizziness especially on standing up. He denied any chest pain, orthopnea/PND, palpitations. Past Medical History Hypertension UTI Diabetes mellitus type 2 Past Surgical History: No pertinent history Family History: Hypertension Social History Patient denied any smoking, alcohol or drug use Current Medications Current Medications Sodium Chloride 500 ml @ 0 mls/hr 1X ONCE IV Last administered on 07/26/20at 13:37; Start 07/26/20 at 13:30; Stop 07/26/20 at 13:31; Status DC Iohexol (Omnipaque 350 Mg/ml) 100 ml 1X ONCE IV Last administered on 07/26/20at 14:12; Start 07/26/20 at 14:00; Stop 07/26/20 at 14:01; Status DC Info (Do NOT chart on this entry -- for MONITORING) 1 each PRN DAILY PRN MC SEE COMMENTS; Start 07/26/20 at 14:00; Stop 07/28/20 at 13:59 Ondansetron HCl (Zofran) 4 mg PRN Q4HRS PRN IVP NAUSEA/VOMITING; Start 07/26/20 at 16:15; Stop 07/27/20 at 16:14 Fentanyl Citrate (Fentanyl 2ml Vial) 50 mcg PRN Q1HR PRN IVP PAIN; Start 07/26/20 at 16:15; Stop 07/27/20 at 16:14 Sodium Chloride 1,000 ml @ 100 mls/hr Q10H IV Last administered on 07/27/20at 05:52; Start 07/26/20 at 16:15; Stop 07/27/20 at 16:14 Acetaminophen (Tylenol) 650 mg PRN Q4HRS PRN PO FEVER > 100.3'F; Start 07/26/20 at 16:15; Stop 07/27/20 at 16:14 Potassium Chloride (Klor-Con) 40 meq 1X ONCE PO ; Start 07/27/20 at 08:15; Stop 07/27/20 at 08:07; Status DC Aspirin (Aspirin Enteric Coated) 81 mg DAILY PO Last administered on 07/27/20at 09:20; Start 07/27/20 at 09:00 Fish Oil (Fish Oil) 1,000 mg DAILY PO Last administered on 07/27/20at 09:21; Start 07/27/20 at 09:00 Oxybutynin Chloride (Ditropan) 10 mg BID PO Last administered on 07/27/20at 0 9:20; Start 07/27/20 at 09:00 Pantoprazole Sodium (Protonix) 40 mg DAILYAC PO Last administered on 07/27/20at 08:55; Start 07/27/20 at 09:00 Prednisone (Prednisone) 5 mg BID PO Last administered on 07/27/20at 09:21; Start 07/27/20 at 09:00 Calcium/Vitamin D (Oscal D 500mg/ 200uts) 1 tab DAILY PO Last administered on 07/27/20at 09:20; Start 07/27/20 at 09:00 Gabapentin (Neurontin) 600 mg TID PO Last administered on 07/27/20at 09:20; Start 07/27/20 at 09:00 Non-Formulary Medication (Leuprolide Acetate ) 7.5 mg 3mos SQ ; Start 07/27/20 at 08:15; Status UNV Magnesium Oxide (Magnesium Oxide) 400 mg DAILY PO Last administered on 07/27/20 at 09:00; Start 07/27/20 at 09:00 Non-Formulary Medication (Pegfilgrastim-Bmez (Ziextenzo)) 6 mg UD SQ ; Start 07/27/20 at 08:15; Status UNV Non-Formulary Medication (Sitagliptin Phos/Metformin Hcl (Janumet 50-500 Mg Tablet)) 2 tab DAILY PO ; Start 07/27/20 at 09:00; Stop 07/27/20 at 08:28; Status DC Linagliptin (Tradjenta) 5 mg DAILY PO Last administered on 07/27/20at 09:21; St art 07/27/20 at 09:00 Metformin HCl (Glucophage) 500 mg BIDWMEALS PO ; Start 07/29/20 at 08:00 Active Scripts Active Losartan Potassium 100 Mg Tablet 100 Mg PO DAILY Cephalexin 500 Mg Capsule 1 Cap PO QID Clonidine Hcl 0.1 Mg Tablet 1 Tab PO BID Reported Leuprolide Acetate 1 Mg/0.2 Ml Kit 7.5 Mg SQ 3MOS Potassium Chloride (Potassium Chloride) 20 Meq Tablet.er 20 Meq PO DAILY Ziextenzo (Pegfilgrastim-Bmez) 6 Mg/0.6 Ml Syringe 6 Mg SQ UD Pantoprazole Sodium 40 Mg Tablet.dr 1 Tab PO DAILY Hydrochlorothiazide Tablet (Hydrochlorothiazide) 12.5 Mg Tablet 25 Mg PO DAILY Amlodipine Besylate 5 Mg Tablet 1 Tab PO DAILY Gabapentin 600 Mg Tablet 600 Mg PO TID Calcium 600 + Vit D 400 Softgl (Calcium Carbonate/Vitamin D3) 1 Each Capsule 1 Cap PO DAILY 30 Days Oxybutynin Chloride 5 Mg Tablet 2 Tab PO BID Janumet 50-500 Mg Tablet (Sitagliptin Phos/Metformin Hcl) 1 Each Tablet 2 Tab PO DAILY 100-1000mg daily in am Magnesium 30 Mg Tablet 400 Mg PO DAILY Prolia (Denosumab) 60 Mg/1 Ml Disp.syrin 60 Mg SQ Prednisone 5 Mg Tablet 5 Mg PO BID Crestor (Rosuvastatin Calcium) 5 Mg Tablet 5 Mg PO Fish Oil 1,000 Mg Capsule ([place]-3 Fatty Acids/Fish Oil) 1 Each Capsule 1 Each PO Aspir 81 (Aspirin) 81 Mg Tablet.dr 81 Mg PO Allergies: Coded Allergies: amlodipine besylate (Verified Allergy, Unknown, Swelling, 06/16/14) atorvastatin calcium (Verified Allergy, Unknown, LEG CRAMPS, 06/16/14) simvastatin (Verified Allergy, Unknown, LEG CRAMPS, 06/16/14) PSYCHOLOGICAL ROS: No: Hallucinations Eyes: No: Loss of vision HEENT: No: Epistaxis Respiratory: No: Hemoptysis Cardiovascular: No: Chest Pain Gastrointestinal: No: Vomiting, Diarrhea Neurological: YES: Other (Syncope); No: Seizures Skin: No: Rash General: Alert, Oriented X3 HEENT: Atraumatic Lungs: Clear to auscultation Heart: Regular rate Abdomen: Soft, No tenderness Extremities: No edema Neuro: Normal speech Psych/Mental Status: Mental status NL VITALS Vital Signs Date Time Temp Pulse Resp B/P (MAP) Pulse Ox O2 Delivery O2 Flow Rate FiO2 07/27/20 10:41 98.7 77 20 111/65 (80) 98 Room Air Labs Laboratory Tests Test 07/26/20 12:00 07/26/20 12:41 07/26/20 16:27 07/26/20 18:53 White Blood Count 35.0 x10^3/uL (4.0-11.0) Red Blood Count 3.59 x10^6/uL (4.30-5.70) Hemoglobin 11.1 g/dL (13.0-17.5) Hematocrit 34.4 % (39.0-53.0) Mean Corpuscular Volume 96 fL (79-100) Mean Corpuscular Hemoglobin 31 pg (25-35) Mean Corpuscular Hemoglobin Concent 32 g/dL (31-37) Red Cell Distribution Width 17.9 % (11.5-14.5) Platelet Count 181 x10^3/uL (140-400) Neutrophils (%) (Auto) 96 % (31-73) Lymphocytes (%) (Auto) 1 % (24-48) Monocytes (%) (Auto) 2 % (0-9) Eosinophils (%) (Auto) 0 % (0-3) Basophils (%) (Auto) 1 % (0-3) Neutrophils # (Auto) 33.6 x10^3uL (1.8-7.7) Lymphocytes # (Auto) 0.5 x10^3/uL (1.0-4.8) Monocytes # (Auto) 0.7 x10^3/uL (0.0-1.1) Eosinophils # (Auto) 0.0 x10^3/uL (0.0-0.7) Basophils # (Auto) 0.2 x10^3/uL (0.0-0.2) Segmented Neutrophils % 96 % (35-66) Lymphocytes % 1 % (24-48) Monocytes % 3 % (0-10) Platelet Estimate Adequate (ADEQUATE) D-Dimer (Arianna) 0.69 mg/L (0.00-0.50) Sodium Level 141 mmol/L (136-145) Potassium Level 3.4 mmol/L (3.5-5.1) Chloride Level 107 mmol/L (98-107) Carbon Dioxide Level 25 mmol/L (21-32) Anion Gap 9 (6-14) Blood Urea Nitrogen 22 mg/dL (8-26) Creatinine 1.0 mg/dL (0.7-1.3) Estimated GFR (Cockcroft-Gault) 87.2 BUN/Creatinine Ratio 22 (6-20) Glucose Level 79 mg/dL (70-99) Calcium Level 8.6 mg/dL (8.5-10.1) Phosphorus Level 2.5 mg/dL (2.6-4.7) Magnesium Level 1.7 mg/dL (1.8-2.4) Total Bilirubin 0.4 mg/dL (0.2-1.0) Aspartate Amino Transf (AST/SGOT) 14 U/L (15-37) Alanine Aminotransferase (ALT/SGPT) 18 U/L (16-63) Alkaline Phosphatase 51 U/L (46-116) Troponin I Quantitative < 0.017 ng/mL (0-0.055) < 0.017 ng/mL (0-0.055) FA-Wjp-[id number]-Type Natriuretic Peptide 92 pg/mL (0-449) Total Protein 5.8 g/dL (6.4-8.2) Albumin 2.9 g/dL (3.4-5.0) Albumin/Globulin Ratio 1.0 (1.0-1.7) Lipase 28 U/L (73-393) Urine Collection Type Unknown Urine Color Yellow Urine Clarity Clear Urine pH 8.0 Urine Specific [place] 1.020 Urine Protein Neg (NEG-TRACE) Urine Glucose (UA) Neg mg/dL (NEG) Urine Ketones (Stick) Neg mg/dL (NEG) Urine Blood Trace (NEG) Urine Nitrite Neg (NEG) Urine Bilirubin Neg (NEG) Urine Urobilinogen Dipstick 0.2 mg/dL (0.2 mg/dL) Urine Leukocyte Esterase Neg (NEG) Urine RBC Occ /HPF (0-2) Urine WBC 5-10 /HPF (0-4) Urine Squamous Epithelial Cells None /LPF Urine Bacteria 0 /HPF (0-FEW) Glucose (Fingerstick) 142 mg/dL (70-99) Test 07/27/20 06:15 White Blood Count 42.4 x10^3/uL (4.0-11.0) Red Blood Count 3.62 x10^6/uL (4.30-5.70) Hemoglobin 11.1 g/dL (13.0-17.5) Hematocrit 34.6 % (39.0-53.0) Mean Corpuscular Volume 96 fL (79-100) Mean Corpuscular Hemoglobin 31 pg (25-35) Mean Corpuscular Hemoglobin Concent 32 g/dL (31-37) Red Cell Distribution Width 18.2 % (11.5-14.5) Platelet Count 168 x10^3/uL (140-400) Neutrophils (%) (Auto) 97 % (31-73) Lymphocytes (%) (Auto) 1 % (24-48) Monocytes (%) (Auto) 1 % (0-9) Eosinophils (%) (Auto) 0 % (0-3) Basophils (%) (Auto) 1 % (0-3) Neutrophils # (Auto) 41.1 x10^3uL (1.8-7.7) Lymphocytes # (Auto) 0.5 x10^3/uL (1.0-4.8) Monocytes # (Auto) 0.5 x10^3/uL (0.0-1.1) Eosinophils # (Auto) 0.0 x10^3/uL (0.0-0.7) Basophils # (Auto) 0.2 x10^3/uL (0.0-0.2) Sodium Level 145 mmol/L (136-145) Potassium Level 3.5 mmol/L (3.5-5.1) Chloride Level 110 mmol/L (98-107) Carbon Dioxide Level 26 mmol/L (21-32) Anion Gap 9 (6-14) Blood Urea Nitrogen 19 mg/dL (8-26) Creatinine 0.9 mg/dL (0.7-1.3) Estimated GFR (Cockcroft-Gault) 98.5 BUN/Creatinine Ratio 21 (6-20) Glucose Level 82 mg/dL (70-99) Calcium Level 7.7 mg/dL (8.5-10.1) Total Bilirubin 0.3 mg/dL (0.2-1.0) Aspartate Amino Transf (AST/SGOT) 14 U/L (15-37) Alanine Aminotransferase (ALT/SGPT) 17 U/L (16-63) Alkaline Phosphatase 51 U/L (46-116) Troponin I Quantitative 0.032 ng/mL (0-0.055) Total Protein 5.0 g/dL (6.4-8.2) Albumin 2.7 g/dL (3.4-5.0) Albumin/Globulin Ratio 1.2 (1.0-1.7) Assessment/Plan 1. Syncope most probably vasovagal. Orthostatics have been negative. Telemetry did not show any significant arrhythmias. Plan for 2D echo and event monitor recording as an outpatient. 2. Hypertension: Controlled 3. Hyperlipidemia: Continue statins 4. Diabetes mellitus type 2: Treat per IM Thank you for your consultation RYAN SCHWARZ MD Jul 27, 2020 13:20
--- NOTE | 2020-07-27 19:20 | HP ---
ADMIT DATE: 07/26/2020 HISTORY OF PRESENT ILLNESS: The patient is a 80-year-old male patient who was brought to the emergency room of [facility] via EMS for a syncopal episode. He states that he was sitting in his living room when he started to feel lightheaded. The patient's blood sugar might have been low as he did not ate his breakfast and went to prepare food. The patient states that he did not make it to the kitchen, but fell. stated that he struck his head on the tile floor. The patient was unsure of how long he was out, a similar episode in the past. This is about his third or fourth time of syncope, last one was 1 year ago. He stated that he has never sought any medical help. He was worked up without any conclusive diagnosis as to why he was syncopized. The patient has stage IV prostate cancer and has received his chemotherapy on last 07/25/2020 [facility] [place], [place]. He denied any history of heart problems or blood clots in his leg or lung. He is not on any blood thinners. Denied any chest pain, denied any dizziness, denied any palpitation. He was evaluated in the emergency room, has had lab work which showed that he has mild hypokalemia. His white cell count was high at 35,000, however, his hemoglobin and hematocrit are slightly low at 11 and 34 with normal platelet count. His chemistry was mostly unremarkable. His D-dimer was high at 0.69. His urinalysis was unremarkable. He had extensive imaging including a CT scan of the chest, abdomen and pelvis as well as CT scan of the head and cervical spine. The CT scan of the head and cervical spine showed no acute intracranial finding or evidence of acute cervical spine trauma. Cerebral volume loss with increased bifrontal extraaxial space, has multiple level degenerative changes involving the cervical spine resulting in stenosis as described. The CT scan of the chest, abdomen and pelvis without showed that there is no evidence of central pulmonary emboli or aortic dissection. He has multiple sclerotic lesions throughout the visualized osseous structures, given a surgically absent prostate, likely due to prostate malignancy, these are likely due to osseous metastasis. These have been increased compared to prior exam. The possibility of superimposed bone island is not excluded. He has stable moderate compression fracture of T12 and no acute fracture is seen. He has multiple bilateral renal cysts and bilateral renal cortical scarring and left nephrolithiasis. There is also a dilated right renal collecting system, likely due to mild hydronephrosis. No convincing obstructing lesion is seen. Has chronic diverticulosis. The patient was admitted to continue on IV fluid and he did receive a bolus of normal saline and the potassium supplement and continued on normal saline at 100 mL per hour. We did reconcile all his medication and we will basically check bilateral carotid arterial Doppler ultrasound, we will check his orthostatics. We did consult the dishwasher preparer as well as the neurologist for evaluation and treatment. PAST MEDICAL HISTORY: Significant for type 2 diabetes mellitus, hypertension, hyperlipidemia. He has bladder cancer, prostate cancer, right kidney cancer, status post partial nephrectomy. Morbid obesity and obstructive sleep apnea, on CPAP. PAST SURGICAL HISTORY: Significant for partial right nephrectomy, prostatectomy, bilateral cataract extraction. He also underwent colonoscopy as well as esophagogastroduodenoscopy. ALLERGIES: HE IS ALLERGIC TO AMLODIPINE, ATORVASTATIN, AND SIMVASTATIN. MEDICATIONS: He is currently on the following medication: He is on Ziextenzo 6 mg subcutaneous. He is on Crestor 5 mg at bedtime, omega 3 fatty acid 1000 mg once a day, clonidine 0.1 mg twice a day, amlodipine besylate 5 mg daily, losartan potassium 100 mg once a day, aspirin 81 mg once a day, gabapentin 600 mg 3 times a day. He is on calcium carbonate plus vitamin D3 one tablet daily, magnesium oxide 400 mg once a day, potassium chloride 20 mEq once a day. Hydrochlorothiazide he is actually getting 25 mg once a day. Potassium chloride, Protonix 40 mg once a day, prednisone 5 mg twice a day, Lupron 1 mg actually takes 7.5 mg subcutaneous every 3 months. He is also on sitagliptin, metformin or Janumet 50/500 two tablets daily, oxybutynin chloride 10 mg twice a day and Prolia 60 mg subcutaneous every 6 months. REVIEW OF SYSTEMS: The patient has bilateral cataract extraction, but denied any glaucoma or macular degeneration. 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 Denied any nosebleed, stuffy nose or postnasal drip. Denied any sore throat, sore tongue, toothache, hoarseness of voice or difficulty swallowing. Denied any nausea, vomiting, or diarrhea. He did complain of constipation. He denied any hematemesis, melena or hematochezia. Denied any dysuria, frequency or hematuria. Denied any chest pain, shortness of breath, orthopnea, paroxysmal nocturnal dyspnea. Denied any cough, phlegm or hemoptysis. PHYSICAL EXAMINATION: GENERAL: On arrival to the emergency room, he looked well and was clearly in no apparent respiratory distress. No pallor, jaundice, cyanosis or thyromegaly, jugular distention, edema. VITAL SIGNS: His heart rate was 76, blood pressure is 127/72, temperature was 98.4, respiratory rate was 16 and oxygen saturation was 100% on room air. HEAD, EYES, EARS, NOSE, AND THROAT: Normocephalic, atraumatic. NECK: Supple. HEART: Showed normal first and second heart sounds. No gallop or murmur. LUNGS: Clear to auscultation rhonchi. ABDOMEN: Distended, soft, nontender. NEUROLOGIC: He was awake, alert, responding appropriately. All cranial nerves intact. He moves all extremities without difficulty. LABORATORY DATA: His lab work on arrival showed white cell count of 5000, hemoglobin 11, hematocrit 34, MCV 96 and platelet count of 181,000 with a manual differential showed 96% polymorphs, 1% lymphocytes and 2% monocytes. His D-dimer was slightly high at 0.69 mg/dL. His chemistry showed a serum sodium 141, potassium 3.4, chloride 107, bicarbonate 25, anion gap of 9, BUN 22, creatinine 1. Estimated GFR was 87 mL per minute. His glucose was 79, calcium is 8.6. His phosphorus was 2.5, magnesium was 1.7. Total bilirubin, AST, ALT, alkaline phosphatase were normal. Total BNP was 92, total protein 5.8, albumin was 2.9. Serum lipase was 28. His urinalysis showed the urine was yellow, clear with a pH of 8, specific gravity of 1.020. The urine was negative for protein, glucose, ketones, trace of blood, negative for nitrite and negative for leukocyte esterase, has occasional rbc's, 5-10 wbcs and no bacteria. The CT scan of the head and cervical spine showed no acute intracranial findings or evidence of acute cervical spine trauma. He has cerebral volume loss with increased bifrontal extraaxial space. Multilevel degenerative changes involving the cervical spine resulting in stenosis as described. The CT scan of the chest, abdomen and pelvis showed no evidence of central pulmonary emboli or aortic dissection. He has multiple sclerotic lesions throughout the visualized osseous structures given a surgically absent prostate, likely prostate malignancy. These are likely due to osseous metastasis. These have been increased compared to the prior exam. The possibility of superimposed bone island is not excluded. There is stable moderate compression fracture of T12, but no acute fracture is seen. Multiple bilateral renal cysts and bilateral renal cortical scarring and left nephrolithiasis. There is also a dilated right renal collecting system, likely due to mild hydronephrosis. No convincing obstructing lesion is seen. ASSESSMENT AND PLAN: The patient was admitted with recurrent syncopal episode. He was continued on IV fluid. We will check his orthostatics. We will check his arterial Doppler ultrasound. We will put him on a monitored bed. Consult the dishwasher preparer as well as neurologist. ANGELI/LISA/CARLOS DR: Deirdre TID: [id number]
--- NOTE | 2020-07-28 04:30 | PN ---
DATE: 07/27/2020 SUBJECTIVE: The patient is resting, slightly propped up in bed, in no apparent respiratory distress. He is awake, alert and questioning. He denies any complaints. In particular, he has no further episodes of syncope. He denied any dizziness, lightheadedness or vertigo. Denies any palpitation, has no further episodes of syncope documented. Nursing staff stated that he is unsteady on his feet when he initially starts, but he is able to walk with a walker. PHYSICAL EXAMINATION: GENERAL: When I examined him, he looked well and was clearly in no apparent respiratory distress. He was pale, no jaundice, cyanosis, no thyromegaly. No jugular venous distention or edema. VITAL SIGNS: Heart rate was 77, blood pressure is 111/65. His orthostatics showed that his blood pressure lying was 120/70 with a heart rate of 78. His blood pressure sitting was 135/71 with a heart rate of 82 and standing was 137/77 with a heart rate of 90. HEENT: Normocephalic, atraumatic. NECK: Supple. HEART: Showed normal first and second heart sounds, no gallop, rub or murmur. CHEST: Clear to auscultation. No crepitation or rhonchi. ABDOMEN: Distended, soft, nontender. NEUROLOGIC: He was awake, alert, responding appropriately. Cranial nerves intact. He moves extremities without difficulty. His intake over the last 24 hours was 850, output was 900. LABORATORY DATA: This morning showed a serum sodium 145, potassium 3.5, chloride 110, bicarbonate 26, anion gap of 9, BUN 19, creatinine 0.9. Estimated GFR was 98 mL per minute. His glucose was 82, calcium was 7.7. Total bilirubin, AST, ALT, alkaline phosphatase were normal. Total protein 5, albumin was 2.7. His white cell count has risen further to 42,400, hemoglobin 11.1, hematocrit 34.6, MCV 96 and platelet count of 168,000 with 97% polymorphs, 1% lymphocytes, and 1% monocytes. PLAN: My plan is to continue on all his medications. Continue with IV fluid. We did consult the wet process miller and the neurologist. We will also consult physical and occupational therapy. We will repeat his lab work and if he remains stable, he can be discharged home tomorrow. He has had his arterial carotid Doppler ultrasound and showed that the patient has no Doppler evidence of greater than 50% stenosis involving the internal carotid arteries. JASWINDER DR: Deirdre TID: [id number]
[2020-07-28 05:58] VITALS: BP 115/56
[2020-07-28 07:47] LABS: HEMATOCRIT 32.8 % (39.0-53.0); HEMOGLOBIN 10.6 g/dL (13.0-17.5); RED BLOOD COUNT 3.43 x10^6/uL (4.30-5.70); RED CELL DISTRIBUTION WIDTH 18.1 % (11.5-14.5); WHITE BLOOD COUNT 39.5 x10^3/uL (4.0-11.0)
[2020-07-28 08:05] LABS: ALBUMIN 2.6 g/dL (3.4-5.0); ALBUMIN/GLOBULIN RATIO 0.9 (1.0-1.7); CALCIUM 7.8 mg/dL (8.5-10.1); CREATININE 0.7 mg/dL (0.7-1.3); GFR 131.6; POTASSIUM 3.6 mmol/L (3.5-5.1); TOTAL BILIRUBIN 0.4 mg/dL (0.2-1.0); TOTAL PROTEIN 5.5 g/dL (6.4-8.2)
[2020-07-28] MEDS: GABAPENTIN 300 MG CAPSULE. PO SCH (08:13)
[2020-07-28] MEDS: MAGNESIUM OXIDE 400 MG TABLET PO SCH (08:13)
[2020-07-28] MEDS: ASPIRIN ENTERIC COATED 81 MG TABLET.DR. PO SCH (08:13)
[2020-07-28] MEDS: CALCIUM CARB/VIT D3 500/200 TABLET PO SCH (08:13)
[2020-07-28] MEDS: predniSONE 5 MG TABLET PO SCH (08:13)
[2020-07-28] MEDS: OMEGA-3 FATTY ACIDS/FISH OIL 1,000 MG CAPSULE. PO SCH (08:14)
[2020-07-28] MEDS: PANTOPRAZOLE 40 MG TABLET. PO SCH (08:14)
[2020-07-28] MEDS: LINAGLIPTIN 5 MG TABLET PO SCH (08:14)
[2020-07-28] MEDS: OXYBUTYNIN CHLORIDE 5 MG TABLET PO SCH (08:16)
[2020-07-28 10:00] VITALS: BP 108/55
[2020-07-28] MEDS ORDERED: HEPARIN PF 500 UNIT/5 ML DISP.SYRIN. IVP ONE (11:15)
--- NOTE | 2020-07-28 11:44 | CONS ---
DATE OF CONSULTATION: 07/26/2020 NEUROLOGY CONSULTATION REFERRING PHYSICIAN: Dr. Mays. REASON FOR CONSULTATION: Syncope versus seizure. HISTORY OF PRESENT ILLNESS: This is a 80-year-old right-handed male who is known to me with history of prostate cancer, diabetes mellitus, hypertension, and hyperlipidemia, was admitted on 07/26/2020 with possible recurrent syncopal episodes. According to the patient, he was sitting in the living room when he started having new onset of lightheadedness. He tried to go to his kitchen and check on possible he had hypoglycemia. Then, he sustained a fall to the floor and he lost his consciousness for unknown period of time. The patient did not recall the event; however, did not have any preceding chest pain, shortness of breath or palpitation. He had similar episodes in the last year. Two days before the admission, the patient was evaluated by oncologist at [facility] and he was started on chemotherapy for prostate cancer and possible bone metastasis. EMS was activated and transferred the patient to Emergency Room. Head CT scan was performed and revealed no acute intracranial process and CT of the cervical spine revealed multiple level degenerative disk disease and spinal stenosis. He also underwent a CT angio of the chest, which revealed no evidence of embolism. Abdominal and pelvis CT scan was also performed and showed multiple sclerotic lesions of the bone and possible consistent with osseous metastasis. During this hospitalization and checking on orthostatic changes revealed no significant changes. Abdomen CT also showed bilateral renal cysts with cortical scarring and possible left mild hydronephrosis. Currently, the patient denies headaches, visual disturbances, nausea, vomiting. He complains of intermittent numbness and paresthesia of the hands and feet, probably due to underlying peripheral neuropathy due to diabetes mellitus. The patient denies vertigo, dysarthria or dysphagia. PAST MEDICAL HISTORY: Significant for diabetes mellitus type 2, hyperlipidemia, hypertension, bladder cancer, prostate cancer and right kidney cancer as well, obesity and obstructive sleep apnea, required CPAP. PAST SURGICAL HISTORY: Positive for partial right nephrectomy, prostatectomy, bilateral cataract extraction. FAMILY HISTORY: Positive for hypertension. SOCIAL HISTORY: The patient denies smoking, alcohol drinking, or illicit drug use. CURRENT HOME MEDICATIONS: Includes metformin, Tradjenta, gabapentin, calcium, vitamin D, prednisone, pantoprazole, oxybutynin, fish oil, aspirin, Tylenol, Lupron, Ziextenzo. ALLERGIES: AMLODIPINE, LIPITOR, CALCIUM, AND SIMVASTATIN. REVIEW OF SYSTEMS: A 12-point review of system was performed as mentioned above in history of present illness. The patient also complains of mild lower back pain. PHYSICAL EXAMINATION: GENERAL: Obese male, not in acute distress. He weighs 94.4 kilos. VITAL SIGNS: Blood pressure 132/73, respiratory rate 18, pulse is 90, oxygen saturation 98% on room air, and temperature 98.1. HEENT: Normocephalic, atraumatic, otherwise unremarkable. NECK: Supple. Negative for carotid bruit, lymphadenopathy or thyromegaly. LUNGS: Clear to A and P. CARDIOVASCULAR: Regular rate and rhythm, normal S1, S2. There is no S3, S4 or murmur. ABDOMEN: Soft. Bowel sounds positive. EXTREMITIES: Negative for cyanosis, clubbing or pitting edema. NEUROLOGICAL EXAM: Mental Status: The patient is alert and oriented x 3. Speech is fluent. There is no language dysfunction. Memory, judgment, and abstracting thinking are normal. The patient denies hallucination or delusion. CRANIAL NERVES: Visual contreras are full. The pupils are reactive to light and accommodation. The extraocular movements are intact. There is no nystagmus. There is no facial motor or sensory deficit. Hearing is intact bilaterally. The palate is elevated symmetrically. Sternocleidomastoid muscles are powerful bilaterally. The patient shrugs his shoulders symmetrically, protrudes his tongue in the midline without fasciculation or atrophy. MOTOR EXAMINATION: No focal muscle bulk was seen. The tone is normal. The strength is 4/5 throughout. SENSORY EXAMINATION: Revealed diminished pinprick and light touch senses in patchy distributions in glove and stocking distributions. Deep tendon reflexes were symmetric and hypoactive with absent Achilles responses. GAIT: Not tested at this time. LABORATORY DATA: CBC revealed white blood cells of 42.4 thousand, hemoglobin 11.1, hematocrit 34.6, platelet count 168,000. Chemistry revealed sodium of 145, potassium 3.5, chloride 110, CO2 of 26, BUN ____, creatinine 0.9, glucose 82. Liver enzymes not elevated. Troponin level is 0.032. Coagulation: D-dimer is high at 0.69. Urinalysis, revealed negative for urinary tract infections; however, white blood cells were 5-10 with negative urinary leukocyte esterase and nitrite. DIAGNOSTIC DATA: Head CT scan without contrast, CT of the abdomen and pelvis as described above in the history of present illness. IMPRESSION: 1. Syncopal episode, probably due to vasovagal phenomena and less likely seizure. 2. Multiple medical problems include prostate cancer, bladder cancer with likely bone metastasis, hypertension, hyperlipidemia, diabetes mellitus type 2, obstructive sleep apnea. RECOMMENDATIONS: 1. Continue with current management initiated by Dr. Mays. 2. Follow up with Cardiology. 3. The patient is neurologically stable. 4. Follow up with Dr. Soto after 2 weeks from discharge. M Sunil SOTO MD DR: OLIVIA/agustin JOB#: [id number] / [id number]
--- NOTE | 2020-07-28 14:47 | NUR ---
Patient discharged per MD. Patient accompanied to private vehicle with bedside RN and all belongings. Patient stable upon discharge.
--- NOTE | 2020-07-28 21:09 | DS ---
DATE OF DISCHARGE: 07/28/2020 HOSPITAL COURSE: The patient is a 80-year-old -Trist[place] male. The patient was admitted with a syncopal episode. When he was evaluated in the emergency room, he was found to have also leukocytosis; however, when I spoke with his oncologist, he stated that he has received dexamethasone and Neulasta on 07/25/2020. He was seen in consultation by the communications specialist as well as the neurologist and plan was for him to be discharged home, as he remained hemodynamically stable and afebrile. His white cell count is trending down. There is no evidence of infection and has been up and about and was steady on his feet. He has no further episodes of syncope and obviously will follow with his primary care physician as well as his oncologist as planned. PHYSICAL EXAMINATION: GENERAL: When I saw him, he looked well and was clearly in no apparent respiratory distress, slightly pale. No jaundice, cyanosis or thyromegaly. No jugular venous distention or edema. VITAL SIGNS: Heart rate was 74, blood pressure is 115/56, temperature was 98.4, respiratory rate was 16 and oxygen saturation was 100%. HEENT: Normocephalic, atraumatic. NECK: Supple. CARDIOVASCULAR: Showed normal first heart sound, no gallop, murmur. Chest was clear to auscultation. No rhonchi. ABDOMEN: Distended, soft, nontender. NEUROLOGIC: He was awake, alert, responding appropriately to commands. EXTREMITIES: He ambulates with a walker without difficulty. His intake over the last 24 hours was 850, output was 900. LABORATORY DATA: As of this morning showed a white cell count of 39,500, hemoglobin 11, hematocrit 33, MCV 96 and platelet count of 139,000. His chemistry showed a serum sodium 143, potassium 3.6, chloride 111, bicarbonate 25, anion gap of 7, BUN 12, creatinine 0.7. Estimated GFR was 131 mL per minute. His glucose was 100. Calcium was 7.8. Total bilirubin, AST, ALT, alkaline phosphatase were normal. Total protein 5.5, albumin was 2.6. DISCHARGE MEDICATIONS: The patient was discharged home, to continue on amlodipine 5 mg once a day, aspirin 81 mg once a day, calcium carbonate with vitamin D one tablet once a day, clonidine 0.1 mg twice a day. He is on Prolia 60 mg once every 6 months, gabapentin 600 mg 3 times a day, hydrochlorothiazide 25 mg daily, leuprolide 7.5 mg subQ every 3 months, losartan potassium 100 mg once a day, magnesium 400 mg daily, omega 3 fatty acids 1 capsule three times a day, oxybutynin chloride 10 mg at bedtime, Protonix 40 mg once a day. He is on Ziextenzo 6 mg per 0.6 mL syringe subQ every 2 weeks, potassium chloride 20 mEq daily, prednisone 5 mg twice a day, Crestor 5 mg daily and sitagliptin/metformin or Janumet 50/500 two tablets daily. FINAL DISCHARGE DIAGNOSES: Syncope due to vasovagal episode. His orthostatics were normal. Other medical problems include type 2 diabetes mellitus, hypertension, hyperlipidemia. He has bladder cancer; prostate cancer, stage IV; right kidney cancer, status post partial nephrectomy; morbid obesity and obstructive sleep apnea, on CPAP. JASWINDER SAUCEDO: Deirdre TID: [id number]
[2020-07-29] MEDS ORDERED: metFORMIN 500 MG TABLET PO SCH (08:00)
--- NOTE | 2020-07-29 13:55 | PN ---
DATE: 07/28/2020 SUBJECTIVE: The patient denies any new medical or neurological complaints. He denies headaches, visual disturbances, numbness, tingling, weakness or dizziness. OBJECTIVE: GENERAL: A well-developed, well-nourished male, in no acute distress. VITAL SIGNS: Blood pressure 115/56, respiratory rate 16, pulse 74 and regular, oxygen 100%, and temperature is 98.4. HEENT: Normocephalic, atraumatic, otherwise unremarkable. NECK: Supple. Negative for carotid bruit, lymphadenopathy or thyromegaly. LUNGS: Clear to A and P. CARDIOVASCULAR: Regular rate and rhythm. Normal S1 and S2. There is no S3, S4, or murmur. ABDOMEN: Soft. Bowel sounds positive. EXTREMITIES: Negative for cyanosis, clubbing, or pedal edema. NEUROLOGIC: Normal mental status and intact cranial nerves. Motor examination revealed mild weakness of the proximal left lower extremity, ____ also was 5/5 throughout. Sensory examination revealed diminished pinprick and light touch senses in patchy distributions in distal lower extremities. Deep tendon reflexes were symmetric and hypoactive with absent Achilles responses. Gait and coordination are normal. LABORATORY DATA: CBC revealed white blood cells of 39,500, hemoglobin 10.6, hematocrit 32.8, platelet count 139,000. Chemistry revealed sodium of 143, potassium 3.6, chloride 111, BUN 12, creatinine 0.7, CO2 is 25, calcium 7.8. IMPRESSION: 1. Status post syncopal episode; however, seizure activity is less likely, but could not be ruled out entirely. 2. Multiple medical problems that include prostate cancer and bladder cancer with bone metastasis; however, the patient denies any bone ache. 3. Multiple medical problems that include diabetes mellitus type 2, hypertension, hyperlipidemia, and obstructive sleep apnea, requires CPAP. 4. Leukocytosis, likely due to recent chemotherapy for cancer. RECOMMENDATIONS: 1. We will continue with current medical care initiated by Dr. Mays. 2. Follow up with Dr. Kearney on outpatient basis after 2 weeks from discharge. ELVIA/FIORELLA DR: Kelsey TID: [id number]
== END 2020-07-28 12:00 | disposition home or self-care (01) ==
LOC: ER 11:05 → 1 SOUTH 16:11 → INTOOBSV 16:11
PROVIDERS: ADMIT Internal Medicine; ATTEND Internal Medicine
DX: R55 Syncope and collapse (principal); D72.829 Elevated white blood cell count, unspecified; I10 Essential (primary) hypertension; E11.9 Type 2 diabetes mellitus without complications; E78.5 Hyperlipidemia, unspecified; G47.33 Obstructive sleep apnea (adult) (pediatric); K59.00 Constipation, unspecified; N39.0 Urinary tract infection, site not specified; E66.01 Morbid (severe) obesity due to excess calories; Z85.46 Personal history of malignant neoplasm of prostate; Z85.51 Personal history of malignant neoplasm of bladder; Z85.528 Personal history of other malignant neoplasm of kidney; Z98.41 Cataract extraction status, right eye; Z98.42 Cataract extraction status, left eye; Z98.890 Other specified postprocedural states; Z79.899 Other long term (current) drug therapy; Z79.84 Long term (current) use of oral hypoglycemic drugs; Z79.82 Long term (current) use of aspirin; Z68.28 Body mass index [BMI] 28.0-28.9, adult
CPT/HCPCS: 36415; 70450; 71275; 72125; 74177; 80053; 81001; 82947; 83690; 83735; 83880; 84100; 84484; 85007; 85025; 85027; 85379; 87077; 87086; 87186; 93005; 93880; 96361; 96374; 97116; 97162; 97165; 99285; G0378; J7030; J7040; J7512; Q9967; G0379

== ENCOUNTER 2020-12-30 18:01 | Inpatient (IN) | payer MEDICARE, OTHER ==
[~2020-12-30] VITALS: Ht 182.9 cm; Wt 90.3 kg
[~2020-12-30 18:01] MED LIST changes: +AMLO-186 PO; +CALC1CAP7 PO; +GABA600T7 PO; +HYDR12.58 PO; +LEUP1KIT SQ; +OXYB5TAB10 PO; +PANT40TA6 PO; +PEGF6SYR SQ; +POTA20TA4 PO; +SITA1TAB7 PO
--- NOTE | 2020-12-30 18:23 | PHYS DOC ---
Past History Past Medical History: Cancer, Constipation, Diabetes, Hypertension, UTI, Other Past Surgical History: Other Additional Past Surgical Histo: tumor removed from kidneys 2008 Alcohol Use: None Drug Use: None General Adult EDM: Chief Complaint: NAUSEA/VOMITING/DIARRHEA HPI: HPI: Patient is a 80 year old male who presents with above hx and complaints of metastatic prostate cancer on chemotherapy at [facility] [address] [facility]. Last chemotherapy was on The pt. presents with complaints of increased nausea and vomiting the last couple days. Pt. follows with Dr. Sukhwinder Sanders locally for care. Patient recently started on Lasix for leg edema and fluid retention.. Patient reports he is leg edema has cleared however he feels however is now very weak. Patient also having having nausea and vomiting the last couple days. Poor intake. Patient does have a past medical history of syncopal episodes, vasovagal episodes, diabetes, hypertension, hyperlipidemia, bladder cancer, prostate cancer, kidney cancer, status post partial nephrectomy, morbid obesity, obstructive sleep apnea treated with CPAP, post instructional hydronephrosis, metastatic bone prostate cancer, compression fracture T12, kidney stones, episodes of hypercalcemia, and generalized deconditioning. Patient normally follows with Dr. Sukhwinder Sanders as primary. Follows with " -for his chemotherapy at [facility]. Patient is accompanied by his daughter. No recent travel. No specific ill contacts. No history of bad food intake. Patient's Covid is vaccination was completed in May with [facility]. Review of Systems: Review of Systems: Constitutional: Denies fever or chills Eyes: Denies change in visual acuity HENT: Denies nasal congestion or sore throat Respiratory: Denies cough or shortness of breath Cardiovascular: Denies chest pain or edema GI: Complains of nausea, vomiting,. Denies bloody stools or diarrhea : Denies dysuria Musculoskeletal: Complains of generalized weakness and fatigue Integument: Denies rash Neurologic: Denies headache, focal weakness or sensory changes Endocrine: Denies polyuria or polydipsia Lymphatic: Denies swollen glands Psychiatric: Denies depression or anxiety Family History: Family History: Noncontributory to presentation Current Medications: Current Meds: See nursing for home meds Allergies: Allergies: Allergies Coded Allergies Type Severity Reaction Last Updated Verified amlodipine besylate Allergy Unknown Swelling 06/16/14 Yes atorvastatin calcium Allergy Unknown LEG CRAMPS 06/16/14 Yes simvastatin Allergy Unknown LEG CRAMPS 06/16/14 Yes Physical Exam: PE: Constitutional: Moderate acute distress, non-toxic appearance. [] HENT: Normocephalic, atraumatic, bilateral external ears normal, oropharynx dry, no oral exudates, nose normal. [] Eyes: PERRLA, EOMI, conjunctiva normal, no discharge. [] Neck: Normal range of motion, no tenderness, supple, no stridor. [] Cardiovascular:Heart rate regular rhythm, no murmur [] Lungs & Thorax: Bilateral breath sounds equal apex on auscultation [] Abdomen: Bowel sounds normal, soft, no tenderness, no masses, no pulsatile masses. Old surgery scars. Skin: Warm, dry, no erythema, no rash. [] Back: No tenderness, no CVA tenderness. [] Extremities: No tenderness, no cyanosis, no clubbing, ROM intact, no edema. Arthritic changes Neurologic: Alert and oriented X 3, normal motor function, normal sensory function, no focal deficits noted. [] Psychologic: Affect anxious, judgement normal, mood normal. [] Current Patient Data: Labs: Note labs are not crossing over-my review of significant labs white count 6.8 hemoglobin 12 platelets 147, sodium 137. Potassium 2.7. Glucose 173 troponin is normal at 0.17 Vital Signs: Vital Signs Date Time Temp Pulse Resp B/P (MAP) Pulse Ox O2 Delivery O2 Flow Rate FiO2 12/30/20 18:06 98.5 58 16 126/65 (85) 99 EKG: EKG: My interpretation of EKG showed is a sinus rhythm at 66 bpm. Does have occasional atrial escape beats. A prolonged IL interval of 222 ms consistent for first-degree heart block. Does have left axis changes. No findings of acute STEMI of contralateral changes however I would consider this an abnormal EKG time of EKG is 1944 hrs. Radiology/Procedures: Radiology/Procedures: [][address] [address] IMAGING REPORT Signed PATIENT: DEBBIE ALBA ACCOUNT: [id number] : 09/04/1928 LOCATION: ER AGE: 89 SEX: M EXAM STATUS: REG ER ORD. PHYSICIAN: RAHEEM ESCOBEDO DO REASON: fall PROCEDURE: CT HEAD WO CONTRAST Exam Date: 12/30/2020 3:[address] HEAD/BRAIN WO Indication: Reason: fall / Spl. Instructions: / History: . TECHNIQUE: Head CT was performed without intravenous contrast. One or more of the following dose reduction techniques were utilized: *Automated exposure control (AEC) *Adjustment of mA and/or kV according to patient size *Use of iterative reconstruction technique *CT scan done according to ALARA, or ALARA/IMAGE GENTLY COMPARISON: February 27, 2020 FINDINGS: The ventricles and sulci are prominent consistent with cerebral volume loss. Patchy ill-defined low attenuation areas in the subcortical and periventricular white matter bilaterally are consistent with microvascular disease. There is no evidence of acute intracranial hemorrhage, extra-axial collection, mass effect, midline shift, or acute territorial infarct. No lesion of the skull base or the calvarium is seen. The visualized paranasal sinuses, mastoid air cells and orbits are normal in appearance. IMPRESSION: No evidence for acute intracranial abnormality. Volume loss and microvascular disease. Electronically signed by: Michelle Jamil MD (12/30/2020 3:56 PM) [facility] DICTATED AND SIGNED BY: MICHELLE JAMIL MD DATE: 12/30/20 1550 CC: RAHEEM ESCOBEDO DO; MARQUES MOREIRA PA ~MTH0 0 Heart Score: C/O Chest Pain: No HEART Score for Chest Pain: HEART Score for Chest Pain Response (Comments) Value History Moderately Suspicious 1 ECG Nonspecific Repolarizatio 1 Age > 65 2 Risk Factors 1 or 2 Risk Factors 1 Troponin < Normal Limit 0 Total 5 Risk Factors: Risk Factors: DM, Current or recent (<one month) smoker, HTN, HLP, family history of CAD, obesity. Risk Scores: Score 0 - 3: 2.5% MACE over next 6 weeks - Discharge Home Score 4 - 6: 20.3% MACE over next 6 weeks - Admit for Clinical Observation Score 7 - 10: 72.7% MACE over next 6 weeks - Early Invasive Strategies Course & Med Decision Making: Course & Med Decision Making Pertinent Labs and Imaging studies reviewed. (See chart for details) Review labs and current findings with Daughter, pt. family and Dr. Mays. Plan admit for further eval. and supplementation of critical potassium level and nausea and vomiting. Admit to Dr. Mays service. Impression: 1. Nausea and vomiting 2. Critical hypokalemia level 2.7 3. Metastatic prostate cancer status post surgery, radiation, and ongoing chemotherapy 4. Completed COVID vaccination 2 and3 rd month 2020- 5. DM - Glucose 173 6. Dehydration [] Dragon Disclaimer: Ben Disclaimer: This electronic medical record was generated, in whole or in part, using a voice recognition dictation system. Departure Departure: Referrals: SUKHWINDER SANDERS MD (PCP) JAIR YE MD Dec 30, 2020 18:23
[2020-12-30] MEDS ORDERED: IV RINGERS SOLUTION,LACTATED 1,000 ML IV SCH (18:30)
[2020-12-30] MEDS ORDERED: FAMOTIDINE 20 MG/2 ML VIAL IVP ONE (18:30)
[2020-12-30] MEDS ORDERED: KETOROLAC 30 MG/ML VIAL. IVP ONE (18:30)
[2020-12-30] MEDS ORDERED: ONDANSETRON PF 4 MG/2 ML VIAL. IVP ONE (18:30)
[2020-12-30 18:37] LABS: BASO # 0.1 x10^3/uL (0.0-0.2); BASO % 1 % (0-3); EOS # 0.1 x10^3/uL (0.0-0.7); EOS % 1 % (0-3); HEMATOCRIT 36.2 % (39.0-53.0); LYMPH # 0.3 x10^3/uL (1.0-4.8); LYMPH % 4 % (24-48); MEAN CORPUSCULAR HEMOGLOBIN 31 pg (25-35); MEAN CORPUSCULAR HGB CONC 33 g/dL (31-37); MEAN CORPUSCULAR VOLUME 95 fL (79-100); MONO # 0.1 x10^3/uL (0.0-1.1); MONO % 2 % (0-9); NEUT # 6.3 x10^3uL (1.8-7.7); NEUT % 93 % (31-73); PLATELET COUNT 140 x10^3/uL (140-400); RED BLOOD COUNT 3.81 x10^6/uL (4.30-5.70); RED CELL DISTRIBUTION WIDTH 16.8 % (11.5-14.5); WHITE BLOOD COUNT 6.8 x10^3/uL (4.0-11.0)
[2020-12-30 19:06] LABS: CALCIUM 8.7 mg/dL (8.5-10.1); CREATININE 0.7 mg/dL (0.7-1.3); DIRECT BILIRUBIN 0.2 mg/dL (0.0-0.2); GFR 131.6; TOTAL BILIRUBIN 1.1 mg/dL (0.2-1.0); TOTAL PROTEIN 6.1 g/dL (6.4-8.2)
[2020-12-30 19:08] LABS: POTASSIUM 2.7 mmol/L (3.5-5.1)
--- NOTE | 2020-12-30 19:14 | RAD ---
Exam: Acute abdominal series INDICATION: Nausea vomiting, chemotherapy, prostate cancer TECHNIQUE: Frontal view of the chest with upright and supine views the abdomen. Comparisons: 10/18/2017 FINDINGS: Right anterior chest wall port with catheter tip at the SVC. The cardiomediastinal silhouette and pulmonary vessels are within normal limits. The lung and pleural spaces are clear. Surgical clips of the pelvis. Air and stool are noted throughout the colon to level the rectum in a nonobstructive bowel gas patter n. No suspicious masses or calcifications. Visualized osseous structures are unremarkable. IMPRESSION: 1. No acute cardiopulmonary process. 2. Nonobstructive bowel gas pattern. Electronically signed by: Celine Headley MD (12/30/2020 7:12 PM) [facility]
[2020-12-30] MEDS ORDERED: POTASSIUM CHLORIDE 20 MEQ TABLET.ER. PO ONE ×2 (19:15→21:00)
[2020-12-30] MEDS: POTASSIUM CHLORIDE 20MEQ 100 ML IV SCH ×2 (20:15→20:25)
[2020-12-30] MEDS ORDERED: ACETAMINOPHEN 325 MG TABLET PO PRN (20:30)
--- NOTE | 2020-12-30 21:29 | EKG ---
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
[2020-12-30 21:54] LABS: % BANDS 8 % (0-9); % BASOS 1 % (0-3); % EOS 1 % (0-5); % LYMPHS 7 % (24-48); % METAS 5 % (0-0); % MONOS 2 % (0-10); % SEGS 62 % (35-66)
[2020-12-30 21:57] LABS: PLT ESTIMATE ADEQUATE (ADEQUATE)
[2020-12-30 22:56] VITALS: BP 137/79
[2020-12-30] MEDS: IV RINGERS SOLUTION,LACTATED 1,000 ML IV SCH (22:58)
[2020-12-30] MEDS: ONDANSETRON PF 4 MG/2 ML VIAL. IVP PRN (23:14)
--- NOTE | 2020-12-30 23:18 | NUR ---
PT ADMITTED TO [facility] VIA EMS ACCOMPANIED BY ER STAFF. PT AMBULATED X1 ASSIST FROM GURNEY TO BED. PT IS AOX4 AND DENIES ANY PAIN AT THIS TIME. PT HAS COMPLAINTS OF NAUSEA DURING ADMISSION ASSESSMENT. PRN ZOFRAN GIVEN INDICATED. POC DISCUSSED W/ VERBALIZED UNDERSTANDING. CALL LIGHT IN REACH WILL CONTINUE TO MONITOR.
[2020-12-31] MEDS ORDERED: IPRATRPIUM/ALBUTEROL 0.5/2.5MG 3 ML NEBU. ONE (05:26)
[2020-12-31] MEDS: IV RINGERS SOLUTION,LACTATED 1,000 ML IV SCH (05:28)
[2020-12-31] MEDS: IPRATRPIUM/ALBUTEROL 0.5/2.5MG 3 ML NEBU. NEB SCH ×4 (05:41→21:51)
[2020-12-31 06:09] VITALS: BP_SYST 119; BP_SYST 161; BP_DIAS 63; BP_DIAS 72
[2020-12-31 07:00] LABS: BASO % 1 % (0-3); EOS # 0.1 x10^3/uL (0.0-0.7); EOS % 2 % (0-3); HEMATOCRIT 33.5 % (39.0-53.0); HEMOGLOBIN 11.1 g/dL (13.0-17.5); LYMPH # 0.6 x10^3/uL (1.0-4.8); LYMPH % 9 % (24-48); MEAN CORPUSCULAR HEMOGLOBIN 31 pg (25-35); MEAN CORPUSCULAR HGB CONC 33 g/dL (31-37); MEAN CORPUSCULAR VOLUME 94 fL (79-100); MONO # 0.2 x10^3/uL (0.0-1.1); MONO % 3 % (0-9); NEUT # 5.3 x10^3uL (1.8-7.7); NEUT % 85 % (31-73); PLATELET COUNT 133 x10^3/uL (140-400); RED BLOOD COUNT 3.55 x10^6/uL (4.30-5.70); RED CELL DISTRIBUTION WIDTH 16.5 % (11.5-14.5); WHITE BLOOD COUNT 6.2 x10^3/uL (4.0-11.0)
[2020-12-31 07:13] LABS: CALCIUM 8.2 mg/dL (8.5-10.1); CREATININE 0.7 mg/dL (0.7-1.3); GFR 131.6
[2020-12-31 07:20] LABS: POTASSIUM 2.8 mmol/L (3.5-5.1)
[2020-12-31] MEDS: ONDANSETRON PF 4 MG/2 ML VIAL. IVP PRN (08:01)
[2020-12-31] MEDS: POTASSIUM CL 40MEQ D5-0.45NACL 1,000 ML IV SCH ×3 (08:04→20:49)
[2020-12-31 11:43] VITALS: BP 116/60
[2020-12-31] MEDS ORDERED: LEUPROLIDE ACETATE 7.5 MG SQ SCH (13:00)
[2020-12-31] MEDS ORDERED: [UNRECOGNIZED DRUG - OTHER] SQ SCH (13:00)
--- NOTE | 2020-12-31 13:07 | HP ---
ADMIT DATE: 12/30/2020 HISTORY OF PRESENT ILLNESS: The patient is a 80-year-old -Mac[place] male patient who presented to the Emergency Room of [facility] with a complaint of nausea, vomiting and diarrhea. He is apparently getting treatment for his metastatic prostate cancer, receiving chemotherapy at [facility] and his last chemotherapy was on , 12/27/2020. He apparently has presented with increased nausea and vomiting started on Thursday and has been worsening since. His primary care physician is Dr. Sanders at his clinic in [place]. He also started receiving Lasix for the leg edema and fluid retention. He stated that his bilateral lower extremity edema has cleared; however, he feels very weak. He is also having nausea and vomiting over the last couple of days, but denied any hematemesis, melena or hematochezia. His appetite has been poor and he was extensively investigated in the Emergency Room, has had lab work and imaging studies. His chemistry showed profound hypokalemia with serum potassium of only 2.7. His CBC was mostly unremarkable. His acute abdomen series showed no acute cardiopulmonary process, nonobstructive bowel gas pattern. The patient was admitted to replete his potassium and to treat dehydration, and continue to monitor his blood sugar and adjust his insulin as needed. PAST MEDICAL HISTORY: Significant for type 2 diabetes mellitus, hypertension, hyperlipidemia. He has a history of kidney cancer, bladder cancer and prostate cancer. PAST SURGICAL HISTORY: Significant for bilateral cataract extraction, partial nephrectomy, bladder tumor resection and prostatectomy. He also underwent colonoscopy. ALLERGIES: HE IS ALLERGIC TO AMLODIPINE AND STATINS PARTICULARLY ATORVASTATIN AND SIMVASTATIN. MEDICATIONS: He is currently on the following medication: He is on Ziextenzo 6 mg subQ daily, Crestor 5 mg at bedtime, [place] 3 fatty acid 1000 mg 3 times a day, clonidine 0.1 mg twice a day, amlodipine besylate 5 mg daily, losartan potassium 100 mg daily, aspirin 81 mg once a day, gabapentin 600 mg 3 times a day, calcium carbonate with vitamin D one tablet once a day, magnesium 400 mg daily, potassium chloride 20 mEq once a day, hydrochlorothiazide 25 mg once a day, Protonix 40 mg daily, prednisone 5 mg twice a day and Lupron 1 mg in 0.25 mL kit, he takes 7.5 mg subQ every 3 months. He is also on sitagliptin/metformin or Januvia 50/500 two tablets twice a day, oxybutynin chloride 10 mg at bedtime and Prolia 60 mg subcutaneously once every 6 months. REVIEW OF SYSTEMS: The patient denied any blurring of vision, but has bilateral cataract extraction. Denied any glaucoma or macular degeneration. He is hard of hearing and has bilateral hearing aids. Denied any stuffy nose or nosebleed. Denied any sore throat, sore tongue, toothache, hoarseness of voice or difficulty swallowing. Did complain of weight loss of about 30 pounds since he started chemotherapy. He also complained of nausea, vomiting as well as diarrhea, but denied any hematemesis, melena or hematochezia. Denied any dysuria, frequency or hematuria, but did complain of nocturia about 3-4 times. He denied any chest pain, shortness of breath, orthopnea, paroxysmal nocturnal dyspnea. Denied any cough, phlegm or hemoptysis. Denied any chills, rigors or fever. Denied any dizziness, lightheadedness or vertigo. PHYSICAL EXAMINATION: GENERAL: On arrival to the Emergency Room, the patient looked well and was clearly in no apparent respiratory distress. There was no pallor, jaundice, cyanosis, or thyromegaly. No jugular venous distention. No limb edema. VITAL SIGNS: Her heart rate was 58, blood pressure was 126/65, temperature was 98.5, respiratory rate was 16 and oxygen saturation was 99% on room air. HEAD, EYES, EARS, NOSE, AND THROAT: Normocephalic, atraumatic. NECK: Supple. HEART: Showed normal first and second heart sounds. No gallop, rub or murmur. CHEST: Clear to auscultation. No crepitation or rhonchi. ABDOMEN: Distended, soft, nontender. NEUROLOGIC: He was grossly intact. LABORATORY DATA: His white cell count was 6800, hemoglobin 12, hematocrit 36, MCV 95 and platelet count of 140,000 with automated differential showing 93% polymorphs, 4% lymphocytes and 2% monocytes. His chemistry showed a serum sodium 139, potassium 2.7, chloride 103, bicarbonate 25, anion gap of 11, BUN 16, creatinine 0.7. Estimated GFR was 131 mL per minute. His glucose 173, calcium was 8.7. Total bilirubin, AST, ALT, alkaline phosphatase were normal. CK was only 33 and total protein 6.1, albumin was 3. His magnesium was 2.1 mg/dL. His coronavirus by PCR was not detectable and his acute abdomen series showed there is no acute cardiopulmonary process and nonobstructive bowel gas pattern. ASSESSMENT AND PLAN: Therefore, the patient was admitted with recurrent bouts of nausea, vomiting and diarrhea, and was found to have hypokalemia, dehydration. Other medical problems include type 2 diabetes mellitus. My plan is to continue with IV fluid. He was initially seen in the Emergency Room, was given a total of 60 mEq of potassium, was started on lactated Ringer's and was admitted for further evaluation and treatment. JUAN MIGUEL DR: Deirdre TID: [id number]
[2020-12-31] MEDS: GABAPENTIN 300 MG CAPSULE. PO SCH ×2 (13:59→20:48)
[2020-12-31] MEDS: OMEGA-3 FATTY ACIDS/FISH OIL 1,000 MG CAPSULE. PO SCH ×2 (13:59→20:48)
[2020-12-31 15:25] VITALS: BP 130/63
[2020-12-31 16:05] LABS: % OTHERS 14 % (0-0)
[2020-12-31 20:03] VITALS: BP 128/63
[2020-12-31] MEDS: cloNIDine HCL 0.1 MG TABLET PO SCH (20:48)
[2020-12-31] MEDS: predniSONE 5 MG TABLET PO SCH (20:48)
[2020-12-31] MEDS: OXYBUTYNIN CHLORIDE 5 MG TABLET PO SCH (20:49)
[2021-01-01] MEDS: POTASSIUM CL 40MEQ D5-0.45NACL 1,000 ML IV SCH (05:22)
[2021-01-01 05:50] LABS: CALCIUM 7.8 mg/dL (8.5-10.1); CREATININE 0.6 mg/dL (0.7-1.3); GFR 157.3; POTASSIUM 4.2 mmol/L (3.5-5.1)
[2021-01-01 05:57] VITALS: BP 106/64
[2021-01-01] MEDS: GABAPENTIN 300 MG CAPSULE. PO SCH ×2 (07:35→13:42)
[2021-01-01] MEDS: cloNIDine HCL 0.1 MG TABLET PO SCH (07:36)
[2021-01-01] MEDS: OXYBUTYNIN CHLORIDE 5 MG TABLET PO SCH (07:36)
[2021-01-01] MEDS: OMEGA-3 FATTY ACIDS/FISH OIL 1,000 MG CAPSULE. PO SCH ×2 (07:37→13:42)
[2021-01-01] MEDS: predniSONE 5 MG TABLET PO SCH (07:37)
[2021-01-01] MEDS ORDERED: LINAGLIPTIN 5 MG TABLET PO SCH (08:00)
[2021-01-01] MEDS ORDERED: metFORMIN XR 500 MG TAB.ER.24H PO SCH (08:00)
--- NOTE | 2021-01-01 08:45 | PN ---
DATE: 12/31/2020 SUBJECTIVE: The patient is a 80-year-old male patient who was admitted yesterday through the Emergency Room with the complaint of recurrent bouts of nausea, vomiting, and diarrhea. He was found to have profound hypokalemia and was admitted for ____ potassium. When I saw him this morning, he continued to have complaint of nausea although did not vomit, has had no more diarrhea. PHYSICAL EXAMINATION: GENERAL: When I examined him, he looked well and was clearly in no apparent respiratory distress. He was pale. No jaundice, cyanosis. No lymphadenopathy, no thyromegaly, no jugular venous distention. No limb edema. VITAL SIGNS: His heart rate was 66, blood pressure is 116/60, temperature was 98.4, respiratory rate 20, and oxygen saturation was 97%. HEAD, EYES, EARS, NOSE, AND THROAT: Normocephalic, atraumatic. NECK: Supple. HEART: Showed normal first and second heart sounds. No gallop, rub, or murmur. CHEST: Clear to auscultation, no crepitation or rhonchi. ABDOMEN: Scaphoid, soft, nontender. NEUROLOGIC: He was grossly intact. His intake and output were incompletely recorded. LABORATORY DATA: Showed a white cell count of 6200, hemoglobin 11, hematocrit 33, MCV 94 and platelet count of 133,000. His chemistry showed a serum sodium 142, potassium 2.8, chloride 107, bicarbonate 24, anion gap of 11, BUN 14, creatinine 0.7. Estimated GFR was 131 mL per minute, glucose 122, and calcium was 8.2. ASSESSMENT: Hypokalemia continued to be an issue, so I changed his IV fluid to normal saline with 40 mEq of potassium chloride. The patient has a multitude of other medical problems including type 2 diabetes mellitus, hypertension, hyperlipidemia; kidney cancer, status post partial nephrectomy; bladder cancer, status post transurethral bladder cancer resection; and prostate cancer, status post prostatectomy for which he received chemotherapy and radiation treatment. I will repeat all his lab works tomorrow. Once his potassium is completely diminished and the patient is able to eat and drink, he can be discharged home. ZAFAR DR: Deirdre TID: [id number]
[2021-01-01] MEDS ORDERED: CALCIUM CARB/VIT D3 500/200 TABLET PO SCH (09:00)
[2021-01-01] MEDS ORDERED: ASPIRIN ENTERIC COATED 81 MG TABLET.DR. PO SCH (09:00)
[2021-01-01] MEDS ORDERED: amLODIPine BESYLATE 5 MG TABLET PO SCH (09:00)
[2021-01-01] MEDS ORDERED: POTASSIUM CHLORIDE 20 MEQ TABLET.ER. PO SCH (09:00)
[2021-01-01] MEDS ORDERED: PANTOPRAZOLE 40 MG TABLET. PO SCH (09:00)
[2021-01-01] MEDS ORDERED: MAGNESIUM OXIDE 400 MG TABLET PO SCH (09:00)
[2021-01-01] MEDS ORDERED: LOSARTAN 50 MG TABLET. PO SCH (09:00)
[2021-01-01 10:25] VITALS: BP 106/63
--- NOTE | 2021-01-01 14:30 | NUR ---
PT WHEELED TO THE FRONT BY STAFF. PT HAS ALL BELONGINGS AND DISCHARGE PAPERWORK WITH SCRIPT. PT BROTHER PICKED HIM UP. PT STABLE.
[2021-01-01] MEDS ORDERED: POTASSIUM CL 40MEQ D5-0.45NACL 1,000 ML IV SCH (15:00)
--- NOTE | 2021-01-01 20:17 | DS ---
DATE OF DISCHARGE: 01/01/2021 HOSPITAL COURSE: The patient is sitting at the edge of the bed, eating his lunch comfortably, in no apparent distress. He has had no further episodes of nausea, vomiting or diarrhea. He is tolerating his diet. He denied any dizziness or lightheadedness. Denied any abdominal pain. PHYSICAL EXAMINATION: GENERAL: When I examined him this afternoon, he looked well and was clearly in no apparent respiratory distress. He is slightly pale . No jaundice, cyanosis. No lymphadenopathy. No thyromegaly. No jugular venous distention. No limb edema. VITAL SIGNS: His heart rate was 81, blood pressure was 106/63, temperature was 98.2, respiratory rate was 18 and oxygen saturation was 98% on room air. HEAD, EYES, EARS, NOSE, AND THROAT: Normocephalic, atraumatic. NECK: Supple. HEART: Showed normal first and second heart sounds. No gallop, rub or murmur. CHEST: Clear to auscultation. No crepitation or rhonchi. ABDOMEN: Distended, soft, nontender. NEUROLOGIC: He was grossly intact. INTAKE AND OUTPUT: His intake was 2360, output was 2450. LABORATORY DATA: As of this morning showed a white cell count of 6200, hemoglobin 11, hematocrit 33, MCV 94 and platelet count of 133,000. His serum sodium was 141, potassium 4.2, chloride 109, bicarbonate 26, anion gap of 6, BUN 8, creatinine 0.6. Estimated GFR was 157 mL per minute. His glucose 139 and calcium was 7.8. ASSESSMENT: Chemotherapy-induced nausea, vomiting and diarrhea with resultant dehydration; hypokalemia, resolved. Other problems include type 2 diabetes mellitus; hypertension; hyperlipidemia; kidney cancer, status post partial nephrectomy; bladder cancer, status post transurethral bladder cancer resection; and prostate cancer, status post prostatectomy. PLAN: The patient will be discharged home to follow with his oncologist and primary care physician. ANGELINA DR: Deirdre TID: [id number]
== END 2021-01-01 14:32 | disposition home or self-care (01) | DRG 394 ==
LOC: ER 18:01 → 1 SOUTH 22:18
PROVIDERS: ADMIT Internal Medicine; ATTEND Internal Medicine
DX: K52.1 Toxic gastroenteritis and colitis (principal); C64.9 Malignant neoplasm of unspecified kidney, except renal pelvis; C79.9 Secondary malignant neoplasm of unspecified site; E87.6 Hypokalemia; E86.0 Dehydration; T45.1X5A Adverse effect of antineoplastic and immunosuppressive drugs, initial encounter; C61 Malignant neoplasm of prostate; E11.9 Type 2 diabetes mellitus without complications; E78.5 Hyperlipidemia, unspecified; I10 Essential (primary) hypertension; Z85.46 Personal history of malignant neoplasm of prostate; Z85.51 Personal history of malignant neoplasm of bladder; Z85.528 Personal history of other malignant neoplasm of kidney; Z87.442 Personal history of urinary calculi; Z90.5 Acquired absence of kidney; Z90.79 Acquired absence of other genital organ(s); Z92.3 Personal history of irradiation; Z98.41 Cataract extraction status, right eye; Z98.42 Cataract extraction status, left eye; E66.01 Morbid (severe) obesity due to excess calories; Z20.822 Contact with and (suspected) exposure to COVID-19; Y92.89 Other specified places as the place of occurrence of the external cause; R11.2 Nausea with vomiting, unspecified; Z68.27 Body mass index [BMI] 27.0-27.9, adult
CPT/HCPCS: 36415; 74022; 80048; 80076; 82550; 83690; 83735; 84484; 85007; 85025; 87426; 93005; 94640; 94760; 96365; 96375; G0238; J1885; J2405; J3480; J3490; J7042; J7120; J7512; U0003; 99285-25

== ENCOUNTER 2021-04-26 04:49 | Emergency (ER) | payer MEDICARE, OTHER ==
[~2021-04-26] VITALS: Ht 182.9 cm; Wt 94.9 kg
[2021-04-26] MEDS ORDERED: IV NORMAL SALINE 250ML 250 ML ONE (05:27)
[2021-04-26 05:34] LABS: BGAS PH 7.48 (7.35-7.46)
--- NOTE | 2021-04-26 05:37 | PHYS DOC ---
Past History Past Medical History: Cancer, Constipation, Diabetes, Hypertension, UTI, Other (GALDINO BELLO MD) Past Surgical History: Other Additional Past Surgical Histo: tumor removed from kidneys 2009 (GALDINO BELLO MD) Alcohol Use: None Drug Use: None (GALDINO BELLO MD) Adult General HPI HPI Patient is an 81-year-old male with a past medical history significant for renal, bladder and prostate cancer with prostatectomy as well as hypertension hyperlipidemia who presents to the emergency department with a chief complaint of lethargy, and shortness of breath. Per EMS on arrival patient's O2 sats were in the upper 80s on arrival on room air and placed on 2 L nasal cannula. (GALDINO BELLO MD) Review of Systems Review of Systems Review of systems otherwise unremarkable except noted in HPI (GALDINO BELLO MD) Allergies Allergies Allergies Coded Allergies Type Severity Reaction Last Updated Verified amlodipine besylate Allergy Unknown Swelling 06/16/14 Yes atorvastatin calcium Allergy Unknown LEG CRAMPS 06/16/14 Yes simvastatin Allergy Unknown LEG CRAMPS 06/16/14 Yes (GALDINO BELLO MD) Physical Exam Physical Exam Constitutional: Well developed, well nourished, in respiratory distress, appears ill [] HENT: Normocephalic, atraumatic, bilateral external ears normal, oropharynx dry no oral exudates, nose normal. [] Eyes: PERRLA, EOMI, conjunctiva normal, no discharge. [] Neck: Normal range of motion, no tenderness, supple, no stridor. [] Cardiovascular: Tachycardia, left bundle branch block Lungs & Thorax: Bilateral breath sounds with global rhonchi, tachypnea, mild increased work of breathing Abdomen: soft, no tenderness, no masses, no pulsatile masses. [] Skin: Warm, dry, no erythema, no rash. [] Extremities: No tenderness, no cyanosis, no clubbing, ROM intact, no edema. [] Neurologic: GCS of 14, E3, V5, M6,, normal motor function, normal sensory function, moving all extremities, cranial nerves appear intact, no focal deficits noted. [] (GALDINO BELLO MD) Physical Exam Constitutional: Ill appearance, moderate respiratory distress HENT: Normocephalic, atraumatic Eyes: Conjunctiva normal, no discharge Neck: Normal range of motion, no tenderness, supple Lungs & Thorax: Moderate respiratory distress, equal chest rise and fall with BIPAP, coarse breath sounds Abdomen: Soft, no tenderness Skin: Warm, dry, no erythema, no rash Extremities: No tenderness, ROM intact, LLE 2+ edema Neurologic: Alert but confused, moves all extremities (HERSON SANTOS DO) EKG EKG [] (GALDINO BELLO MD) EKG @0545 Sinus tachycardia at 110bpm, NO ST elevation, QRS 82ms, QT/QTc 320/438ms, baseline artifact, Q wave in III (HERSON SANTOS DO) Radiology/Procedures Radiology/Procedures [] (GALDINO BELLO MD) Radiology/Procedures PROCEDURE: CHEST AP ONLY XR CHEST 1V History: Reason: SOB / Spl. Instructions: / History: Comparison: October 18, 2017 Findings: Multifocal ill-defined right lung opacities. Possible small right pleural effusion. Right chest wall port with tip projecting over the cavoatrial junction. Patchy left basilar opacities. Unchanged heart size. Impression: 1. Multifocal pulmonary opacities most prominent on the right, concerning for pneumonia. Recommend follow-up to ensure resolution. Electronically signed by: Ramesh Benson DO (04/26/2021 8:25 AM) [id number] PROCEDURE: CT CHEST ABDOMEN PELVIS WO CT CHEST_ABDOMEN_ AND PELVIS WITHOUT CONTRAST History: Altered mental status. Metastatic cancer. Technique: CT of the chest, abdomen and pelvis were performed without contrast. Coronal and sagittal reconstructions were performed. Exposure: One or more of the following individualized dose reduction techniques were utilized for this examination: 1. Automated exposure control 2. Adjustment of the mA and/or kV according to patient size 3. Use of iterative reconstruction technique. Comparison: July 26, 2020 Findings: Chest: Right chest wall port. No pathologic lymphadenopathy. Small hiatal hernia. Mild gynecomastia. Multifocal groundglass and nodular opacities within the right upper lobe. Right lower lobe consolidations and atelectasis. Mild left lower lobe and lingular linear opacities, likely atelectasis. No pneumothorax. No pleural effusion. 3 mm left upper lobe pulmonary nodule (series 2 image 29), unchanged and calcified previously related to prior granulomatous disease. Abdomen and pelvis: The liver, spleen, and adrenal glands are unremarkable. Fatty infiltration of the pancreas. Cholelithiasis. No biliary ductal dilatation. Nonspecific perinephric stranding, unchanged. No hydronephrosis. Small left superior renal calculus. Decompressed urinary bladder with Mota catheter in place. Colonic diverticulosis. Normal appendix. No evidence of bowel obstruction. No pathologic lymphadenopathy. No ascites. Postoperative changes prostatectomy. Nodular infiltration of the anterior abdominal subcutaneous tissues, likely related to prior medication injection sites. Bones: Increased sclerotic lesion within the left anterior sixth rib. Similar sclerotic lesion within the right seventh posterior and left lateral ninth rib. Sclerotic lesions within the thoracolumbar spine involving T3, T6, T7, T11, L1, L2, L3 and L4 vertebral bodies. Additional lesions involving the pelvis and sacrum. Increased left iliac crest lesion measures 0.8 cm (series 2 image 151). Increased right iliac crest lesions. Increased right posterior ilium lesions. Chronic mild T12 compression fracture. Impression: 1. Multifocal right upper and lower lobe opacities and consolidations concerning for pneumonia. Recommend follow-up to ensure resolution. 2. Increased multifocal osseous sclerotic lesions concerning for metastasis. 3. Cholelithiasis. Electronically signed by: Ramesh Benson DO (04/26/2021 8:43 AM) [id number] PROCEDURE: CT HEAD WO CONTRAST CT HEAD/BRAIN WO History: Reason: AMS / Spl. Instructions: / History: Comparison: July 26, 2020 Technique: Noncontrast CT imaging was performed of the head. Exposure: One or more of the following individualized dose reduction techniques were utilized for this examination: 1. Automated exposure control 2. Adjustment of the mA and/or kV according to patient size 3. Use of iterative reconstruction technique. Findings: No intracranial hemorrhage. No mass effect. No hydrocephalus. Mild brain parenchymal volume loss. Mild foci of decreased attenuation within the hemispheric white matter, most often due to chronic microvascular ischemia. Partially empty sella, often incidental. Imaged orbits are unremarkable. Imaged paranasal sinuses and mastoid air cells are clear. No acute calvarial fracture. Impression: 1. No acute intracranial abnormality. Electronically signed by: Ramesh Benson DO (04/26/2021 8:23 AM) [id number] PROCEDURE: VENOUS LOWER EXTREMITY LEFT INDICATION: Reason: cancer, LLE swelling / Spl. Instructions: / History: COMPARISON: None. TECHNIQUE: Grayscale, color and doppler ultrasound images were obtained of the left lower extremity venous vasculature. LEFT: No thrombus identified in the common femoral vein, femoral vein, popliteal vein or visualized calf veins. IMPRESSION: * No thrombus identified in deep venous system of the left lower extremity. * Edema of soft tissues. Electronically signed by: Jn Burgos MD (04/26/2021 9:08 AM) [id number] (HERSON SANTOS DO) Heart Score C/O Chest Pain: No Risk Factors: Risk Factors: DM, Current or recent (<one month) smoker, HTN, HLP, family history of CAD, obesity. Risk Scores: Risk Factors: DM, Current or recent (<one month) smoker, HTN, HLP, family history of CAD, obesity. (GALDINO BELLO MD) Course & Med Decision Making Course & Med Decision Making Patient is an 81-year-old male with multiple comorbidities including 3 types of cancer on leuprolide who presents to the emergency department in respiratory distress Vital signs notable for tachycardia, and tachypnea, borderline hypoxia, and hypotension. Physical exam noted above. EKG with tachycardia, left bundle branch block, no STEMI. Placed on the monitor with IV access x2. (GALDINO BELLO MD) Course & Med Decision Making 0600- Sign out received from Dr. Bello for patient in respiratory failure requiring BIPAP. Concern for possible sepsis given hypotension, tachycardia, and tachypnea. Labs previously ordered and reviewed. SIRS met with HR and tachypnea. Bandemia also noted. Acute renal failure noted. CRP elevated. Lactic acid > 4. CXR reviewed with signs of ground glass infiltrates R > L. Rapid COVID positive. Troponin > 300. ASA previously given. Dr. Bello with concern for possible CHF and had given Lasix. Empiric antibiotic also previously provided with Levaquin. Decision to expand antibiotic coverage with Zosyn. Patient had received1 Liter of LR previously. Will give additional 500ml of NS. Patient with continued hypotension. Levophed ordered. Discussion with spouse regarding patient's CODE status. Patient is a DNR/DNI. Additionally patient did receive COVID [employer] vaccination including booster. Given need for heparin, Levophed, and empiric antibiotics decision to place central line. Bedside ultrasound utilized with successful placement of triple- lumen catheter to right femoral vein. Patient tolerated procedure well and without difficulty. CXR with signs of infection. CT head without acute process. CT chest/abd/pel vis with signs of pneumonia with concern for possible metastatic disease. Venous doppler of LLE without signs of DVT. Patient requiring transfer to higher level care facility with cardiology/labor and employment paralegal and pulmonology senior science consultant coverage. Discussed with Dr. Good (hospitalist) who is in agreement with transfer to [facility] for ICU admission. Discussed findings and plan with patient's spouse, who acknowledges understanding and agreement. While awaiting bed placement at [place], repeat troponins obtained with improvement. Lactic acid initially worsened. IV fluid hydration utilized. A 30 mL/kg bolus was not provided given patient COVID status. Third lactic acid with improvement. COVID-19 CRITERIA: The patient was evaluated during the global COVID-19 pandemic, and that diagnosis was suspected/considered upon their initial presentation. Their evaluation, treatment and testing was consistent with current guidelines for patients who present with complaints or symptoms that may be related to COVID-19. (HERSON SANTOS DO) Dragon Disclaimer Dragon Disclaimer This electronic medical record was generated, in whole or in part, using a voice recognition dictation system. (GALDINO BELLO MD) Central Line Central Line : Central Line Lumen: triple Central Line Procedure: sterile drapes applied, sterile dressing applied Central Line Postion: femoral (R) Anesthesia: Lidocaine (1%) cc's of anesthesia: 3 Complications: none Central Line Post Position: sutured, good blood return Progress Written consent obtained. Time out performed. Hand hygiene utilized. Sterile attire and gloves donned. Wound cleaned with ChloraPrep. Sterile drape applied. Bedside ultrasound guidance utilized to find compressible, oval- shaped, nonpulsatile, thin-walled hypoechoic structure consistent with right femoral vein. Anesthesia obtained via a 25-gauge hypodermic needle with (3) mL's of lidocaine 1%. Successful placement of triple-lumen catheter performed over wire via Seldinger technique. All 3 ports able to draw back and push without difficulty. Catheter secured in place with sutures and sterile dressing. Patient tolerated procedure well and without difficulty. (HERSON SANTOS DO) Departure Departure: Impression: Primary Impression: Respiratory failure Additional Impressions: NSTEMI (non-ST elevated myocardial infarction) UTI (urinary tract infection) Septic shock Renal failure Transaminasemia Pneumonia due to 2019 novel coronavirus Disposition: 02 SHORT TERM HOSPITAL ([facility]) Condition: CRITICAL Referrals: ANGELIKA FREEMAN MD (PCP) COVID-19 Assessment COVID-19 Patient Risks: Age 65 or older: Yes Sign of co-morbidity: Yes Exp to person + for COVID: No Exp to PUI: No Travel from affected area: No Lower respiratory symptoms: Yes Fever: No Other: Yes (HERSON SANTOS DO) PPE Use: Full PPE with N95 mask or PAPR: Yes (HERSON SANTOS DO) Critical Care Time Critical care time was 30 minutes which includes time at bedside, spent in discussion of patient's care with specialists and/or family members, with interpretation of laboratory and/or radiological studies and is exclusive of procedures. (HERSON SANTOS DO) Problem Qualifiers Primary Impression: Respiratory failure Chronicity: acute Respiratory failure complication: hypoxia Qualified Codes: J96.01 - Acute respiratory failure with hypoxia Additional Impressions: UTI (urinary tract infection) Urinary tract infection type: acute cystitis Hematuria presence: with hematuria Qualified Codes: N30.01 - Acute cystitis with hematuria Renal failure Renal failure chronicity: acute Acute renal failure type: unspecified Qualified Codes: N17.9 - Acute kidney failure, unspecified AGLDINO BELLO MD Apr 26, 2021 05:37 HERSON SANTOS DO Apr 26, 2021 07:32
[2021-04-26 05:43] LABS: BASO # 0.1 x10^3/uL (0.0-0.2); BASO % 1 % (0-3); EOS % 0 % (0-3); HEMATOCRIT 42.2 % (39.0-53.0); HEMOGLOBIN 13.8 g/dL (13.0-17.5); LYMPH # 0.8 x10^3/uL (1.0-4.8); LYMPH % 8 % (24-48); MEAN CORPUSCULAR HEMOGLOBIN 31 pg (25-35); MEAN CORPUSCULAR HGB CONC 33 g/dL (31-37); MEAN CORPUSCULAR VOLUME 94 fL (79-100); MONO # 0.6 x10^3/uL (0.0-1.1); MONO % 6 % (0-9); NEUT # 8.6 x10^3uL (1.8-7.7); NEUT % 85 % (31-73); PLATELET COUNT 216 x10^3/uL (140-400); RED BLOOD COUNT 4.48 x10^6/uL (4.30-5.70); RED CELL DISTRIBUTION WIDTH 18.5 % (11.5-14.5)
[2021-04-26] MEDS ORDERED: EPINEPHRINE IV PRN (05:45)
[2021-04-26] MEDS ORDERED: IOHEXOL 350 MG/ML 100 ML VIAL. IV ONE (05:45)
[2021-04-26] MEDS ORDERED: FUROSEMIDE 40 MG/4 ML VIAL IVP ONE (05:45)
[2021-04-26] MEDS ORDERED: NORMAL SALINE IV PRN (05:45)
[2021-04-26 05:48] LABS: CALCIUM 7.8 mg/dL (8.5-10.1); POTASSIUM 5.4 mmol/L (3.5-5.1)
[2021-04-26 06:02] LABS: ALBUMIN 2.5 g/dL (3.4-5.0); C REACTIVE PROTEIN 213.4 mg/L (0-3.3); CREATININE 4.5 mg/dL (0.7-1.3); GFR 15.3; MAGNESIUM 2.2 mg/dL (1.8-2.4); TOTAL BILIRUBIN 0.5 mg/dL (0.2-1.0); TOTAL PROTEIN 5.1 g/dL (6.4-8.2)
[2021-04-26 06:14] LABS: INFLUENZA A PATIENT NEGATIVE (NEGATIVE); INFLUENZA B PATIENT NEGATIVE (NEGATIVE)
[2021-04-26] MEDS ORDERED: ASPIRIN CHEWABLE 81 MG TABLET. PO ONE (06:15)
[2021-04-26 06:24] LABS: BACTERIA,URINE MOD /HPF (0-FEW); BILIRUBIN,URINE MOD (NEG); CLARITY,URINE TURBID; COLOR,URINE AMBER; GLUCOSE,URINE NEG (NEG); NITRITE,URINE POS (NEG); SQUAMOUS EPITHELIAL CELL,UR MOD /LPF; UROBILINOGEN,URINE 0.2 mg/dL (0.2 mg/dL); WBC,URINE TNTC /HPF (0-4)
[2021-04-26 06:25] LABS: AMORPHOUS SEDIMENT,UR PRESENT /HPF; HYALINE CASTS, URINE OCC /HPF
[2021-04-26 06:31] LABS: % BANDS 10 % (0-9); % LYMPHS 9 % (24-48); % MONOS 5 % (0-10); % SEGS 76 % (35-66); PLT ESTIMATE ADEQUATE (ADEQUATE)
[2021-04-26] MEDS ORDERED: PIP/TAZO PER PHARMACY MC PRN (06:45)
[2021-04-26] MEDS ORDERED: DEXAMETHASONE SOD PHOS 10 MG/ML VIAL. IVP ONE (06:45)
[2021-04-26] MEDS ORDERED: HEPARIN for IV BOLUS 10,000 UNIT/10 ML VIAL. IV ONE (06:45)
[2021-04-26] MEDS ORDERED: HEPARIN 25,000UTS/250ML PREMIX 250 ML IV PRN (06:45)
[2021-04-26] MEDS ORDERED: ASPIRIN CHEWABLE 81 MG TABLET. ONE (07:05)
[2021-04-26] MEDS ORDERED: DEXAMETHASONE SOD PHOS 10 MG/ML VIAL. ONE (07:06)
[2021-04-26] MEDS ORDERED: IOHEXOL 350 MG/ML 100 ML VIAL. ONE (07:07)
[2021-04-26] MEDS ORDERED: IV NORMAL SALINE 500ML 500 ML IV ONE ×2 (07:30→09:30)
[2021-04-26] MEDS: NOREPINEPHRINE BITARTRATE 8 MG in IV DEXTROSE 5% 250 ML IV PRN ×2 (07:31→13:59)
[2021-04-26 07:38] LABS: BGAS PH 7.44 (7.35-7.46)
--- NOTE | 2021-04-26 08:18 | EKG ---
[address] [address] Test Date: 2021-04-26 Test Time: 05:45:26 Pat Name: ASTON VALADEZ Department: Room: Gender: M Financial Services Education Consultant: : 1940 Requested By: GALDINO BELLO Order Number: [id number] Reading MD: Roger Rubi MD Measurements Intervals Wheeler Rate: 110 P: 86 NM: 198 QRS: -85 QRSD: 82 T: 21 QT: 320 QTc: 438 Interpretive Statements SINUS TACHYCARDIA CONSIDER INFERIOR INFARCT - OLD Electronically Signed On 04-26-2021 18:00:08 MEAT CARVER by Roger Rubi MD
--- NOTE | 2021-04-26 08:25 | RAD ---
CT HEAD/BRAIN WO History: Reason: AMS / Spl. Instructions: / History: Comparison: July 26, 2020 Technique: Noncontrast CT imaging was performed of the head. Exposure: One or more of the following individualized dose reduction techniques were utilized for thi s examination: 1. Automated exposure control 2. Adjustment of the mA and/or kV according to patient size 3. Use of iterative reconstruction technique. Findings: No intracranial hemorrhage. No mass effect. No hydrocephalus. Mild brain parenchymal volume loss. Mild foci of decreased attenuation within the hemispheric white m atter, most often due to chronic microvascular ischemia. Partially empty sella, often incidental. Imaged orbits are unremarkable. Imaged paranasal sinuses and mastoid air cells are clear. No acute ca lvarial fracture. Impression: 1. No acute intracranial abnormality. Electronically signed by: Ramesh Benson DO (04/26/2021 8:23 AM) [id number]
--- NOTE | 2021-04-26 08:27 | RAD ---
XR CHEST 1V History: Reason: SOB / Spl. Instructions: / History: Comparison: October 18, 2017 Findings: Multifocal ill-defined right lung opacities. Possible small right pleural effusion. Right chest wall port with tip projecting over the cavoatrial junction. Patchy left basilar opacities. Unchanged heart size. Impression: 1. Multifocal pulmonary opacities most prominent on the right, concerning for pneumonia. Recommend f ollow-up to ensure resolution. Electronically signed by: Ramesh Benson DO (04/26/2021 8:25 AM) [id number]
[2021-04-26] MEDS ORDERED: PIPERACILLIN/TAZOBACTAM 2.25 GM VIAL IV ONE ×2 (08:34→14:52)
[2021-04-26] MEDS ORDERED: IV NORMAL SALINE 50ML 50 ML ONE ×3 (08:34→14:52)
[2021-04-26] MEDS: PIPERACILLIN/TAZOBACTAM 2.25 GM in IV NORMAL SALINE 50ML 50 ML IV SCH ×2 (08:39→14:57)
--- NOTE | 2021-04-26 08:46 | RAD ---
CT CHEST_ABDOMEN_ AND PELVIS WITHOUT CONTRAST History: Altered mental status. Metastatic cancer. Technique: CT of the chest, abdomen and pelvis were performed without contrast. Coronal and sagittal reconstructions were performed. Exposure: One or more of the following individualized dose reduction techniques were utilized for thi s examination: 1. Automated exposure control 2. Adjustment of the mA and/or kV according to patient size 3. Use of iterative reconstruction technique. Comparison: July 26, 2020 Findings: Chest: Right chest wall port. No pathologic lymphadenopathy. Small hiatal hernia. Mild gynecomastia. Multifocal groundglass and nodular opacities within the right upper lobe. Right lower lobe consolidat ions and atelectasis. Mild left lower lobe and lingular linear opacities, likely atelectasis. No pneu mothorax. No pleural effusion. 3 mm left upper lobe pulmonary nodule (series 2 image 29), unchanged and calcified previously related to prior granulomatous disease. Abdomen and pelvis: The liver, spleen, and adrenal glands are unremarkable. Fatty infiltration of the pancreas. Cholelithiasis. No biliary ductal dilatation. Nonspecific perinephric stranding, unchanged . No hydronephrosis. Small left superior renal calculus. Decompressed urinary bladder with Mota cath eter in place. Colonic diverticulosis. Normal appendix. No evidence of bowel obstruction. No pathologic lymphadenopa thy. No ascites. Postoperative changes prostatectomy. Nodular infiltration of the anterior abdominal subcutaneous tissues, likely related to prior medication injection sites. Bones: Increased sclerotic lesion within the left anterior sixth rib. Similar sclerotic lesion within the right seventh posterior and left lateral ninth rib. Sclerotic lesions within the thoracolumbar s pine involving T3, T6, T7, T11, L1, L2, L3 and L4 vertebral bodies. Additional lesions involving the pelvis and sacrum. Increased left iliac crest lesion measures 0.8 cm (series 2 image 151). Increased right iliac crest lesions. Increased right posterior ilium lesions. Chronic mild T12 compression frac ture. Impression: 1. Multifocal right upper and lower lobe opacities and consolidations concerning for pneumonia. Romulo mmend follow-up to ensure resolution. 2. Increased multifocal osseous sclerotic lesions concerning for metastasis. 3. Cholelithiasis. Electronically signed by: Ramesh Benson DO (04/26/2021 8:43 AM) [id number]
--- NOTE | 2021-04-26 09:11 | RAD ---
INDICATION: Reason: cancer, LLE swelling / Spl. Instructions: / History: COMPARISON: None. TECHNIQUE: Grayscale, color and doppler ultrasound images were obtained of the left lower extremity v enous vasculature. LEFT: No thrombus identified in the common femoral vein, femoral vein, popliteal vein or visualized calf ve ins. IMPRESSION: * No thrombus identified in deep venous system of the left lower extremity. * Edema of soft tissues. Electronically signed by: Jn Burgos MD (04/26/2021 9:08 AM) [id number]
[2021-04-26] MEDS ORDERED: IV NORMAL SALINE 1,000ML 1,000 ML IV ONE (11:00)
[2021-04-26 15:00] VITALS: BP 122/54
== END 2021-04-26 15:23 | disposition short-term general hospital (02) ==
LOC: ER 04:49
DX: U07.1 COVID-19 (principal); J12.82 Pneumonia due to coronavirus disease 2019; J96.01 Acute respiratory failure with hypoxia; N30.01 Acute cystitis with hematuria; N17.9 Acute kidney failure, unspecified; I21.4 Non-ST elevation (NSTEMI) myocardial infarction; R65.21 Severe sepsis with septic shock; R74.01 Elevation of levels of liver transaminase levels; E11.9 Type 2 diabetes mellitus without complications; I10 Essential (primary) hypertension; E78.5 Hyperlipidemia, unspecified; Z87.440 Personal history of urinary (tract) infections; Z88.8 Allergy status to other drugs, medicaments and biological substances
CPT/HCPCS: 36415; 36600; 51702; 70450; 71045; 71250; 74176; 80053; 81001; 82803; 83605; 83735; 83880; 84484; 85007; 85025; 85610; 85651; 85730; 86140; 87040; 87086; 87186; 87428; 92950; 93005; 93971; 94660; 96365; 96366; 96368; 96375; 96376; 99291; J1100; J1644; J1940; J1956; J2543; J7030; J7040

== ENCOUNTER → 2021-08-06 | Outpatient (CLI) | payer MEDICARE ==
[~2021-08-06] MED LIST changes: +REGADENOSON 0.4 MG/5 ML DISP.SYRIN. IV ONE
--- NOTE | 2021-08-06 12:05 | RAD ---
MR#: [id number] Date of Study: 08/06/2021 Ordering Physician: JUNIOR GARAY, Referring Physician: NIDHI SALINAS Tech: RT Darius (R) (N) APPROVED REPORT Test Type: Pharmacological Stress Nurse/Tech: Yandy/Briana Test Indications: NSTEMI Cardiac History: No known cardiac Medications: See EHR Medical History: See EHR Resting Heart Rate: 72 bpm Resting Blood Pressure: 129/65mmHg Pretest Chest Pain: None Pharm. Details Pharmacologic stress testing was performed using 0.4mg per 5ml of regadenoson given intravenously ove r 7-10 seconds. Stress Symptoms None POST EXERCISE Reason for Termination: Infusion complete Max HR: 140 bpm Max Blood Pressure: 129/58mmHg Blood Pressure response to exercise: Normal blood pressure response during stress. Heart Rate response to exercise: Increased Chest Pain: No. Arrhythmia: No. ST Change: No. INTERPRETATION Stress EKG Conclusion: No acute changes Imaging Protocol IMAGE PROTOCOL: Rest Tc-99m/stress Tc-99m 1 day Rest: Stress: Viability: Radiopharm.Tc99m NjwagyzkgGz94h Sestamibi Lvcd99fCo 33mCi Duration 15min. 15min. Img Date 08/06/2021 08/06/2021 Inj-Img Oimw92mzu. 60min. Rest Admin Site:IV - Left AntecubitalAdministrator: RT Darius (R)(N) Stress Admin Site: IV - Left AntecubitalAdministrator: RT Darius (R)(N) STRESS DATA End Diast. Vol.72.0mlAv. Heart Rate79.0bpm End Syst. Vol.6.0mlCO Index BSA0.0L/min Myocardial Mlzi497.0gEject. Sxnqppyo55.0% Stress Rates Pk. Fill Rate3.06EDV/secLVtime Pk. Fill 198.83msec Pk. Empty Rate5.11ESV/secLVtime Pk. Wroni462.57msec 04/08 Pk. Fill2.11EDV/sec Stress Scores Regional WT1.00Summed WT2.00 Regional WM0.00Summed WM0.00 The rest and stress images show normal perfusion, normal contraction and thickening. LV Perf. Quant 17 Seg. SSS0.00 17 Seg. SRS1.00 17 Seg. SDS0.00 Stress Defect Extent (% LAD)0.00Rest Defect Extent (% LAD)4.40Rev. Defect Extent (% LAD)0.00 Stress Defect Extent (% LCX) 0.00Rest Defect Extent (% LCX)0.00Rev. Defect Extent (% LCX)0.00 Stress Defect Extent (% RCA)0.00Rest Defect Extent (% RCA)0.00Rev. Defect Extent (% RCA)0.00 Stress Defect Extent (% KEYA)0.00Rest Defect Extent (% KEYA)2.40Rev. Defect Extent (% KEYA)0.00 Other Information Quality:Average Risk Assessment: Low Risk Conclusion 1. No evidence of EKG changes with stress testing. 2. Normal perfusion at stress/rest. 3. Low risk study. 4. EF > 60%. Signed by : Junior Garay, Electronically Approved : 08/06/2021 12:04:57
--- NOTE | 2021-08-06 17:38 | CARD ---
MR#: [id number] Date of Study: 08/06/2021 Ordering Physician: JUNIOR GARAY, Referring Physician: JUNIOR GARAY, Tech: Tong Cuello [facility] APPROVED REPORT EXAM: Two-dimensional and M-mode echocardiogram with Doppler and color Doppler. Other Information Quality : AverageHR: 78bpm Rhythm : NSR INDICATION Non STEMI RISK FACTORS Hypertension Hyperlipidemia Diabetes 2D DIMENSIONS Left Atrium(2D)3.6 (1.6-4.0cm)IVSd1.4 (0.7-1.1cm) Aortic Root(2D)3.3 (2.0-3.7cm)LVDd3.6 (3.9-5.9cm) LVOT Diameter2.1 (1.8-2.4cm)PWd1.4 (0.7-1.1cm) LA Jahiet74 (18-58mL)LVDs2.0 (2.5-4.0cm) FS (%) 42.9 %SV39.5 ml LVEF(%)75.0 (>50%) Aortic Valve AoV Peak Anshu.130.4cm/sAoV VTI26.2cm AO Peak GR.6.8mmHgLVOT Peak Anshu.110.2cm/s LVOT VTI 21.73cmAO Mean GR.4mmHg MILANA (VMAX)2.69dw3PMN (VTI)2.85cm2 Mitral Valve MV E Sgawlzee96.3cm/sMV DECEL [id number] MV A Hitleghn54.0cm/sE/A Ratio0.7 Pulmonary Valve PV Peak Ueluuthn74.1cm/sPV Peak Grad.4mmHg Tricuspid Valve TR P. Iqxolydb492am/sTR Peak Gr.24mmHg Pulmonary Vein S1 Tnmkdevl50.5cm/sD2 Uszurxuq17.7cm/s LEFT VENTRICLE The left ventricle is normal size. There is mild to moderate concentric left ventricular hypertrophy. The left ventricular systolic function is normal and the ejection fraction is within normal range. E F 55% There is normal LV segmental wall motion. Transmitral Doppler flow pattern is Grade I-abnormal relaxation pattern. No left ventricle thrombus noted on this study. There is no ventricular septal de fect visualized. There is no left ventricular aneurysm. There is no mass noted in the left ventricle. RIGHT VENTRICLE The right ventricle is normal size. There is normal right ventricular wall thickness. The right ventr icular systolic function is normal. ATRIA The left atrium size is normal. The right atrium size is normal. The interatrial septum is intact wit h no evidence for an atrial septal defect or patent foramen ovale as noted on 2-D or Doppler imaging. AORTIC VALVE The aortic valve is normal in structure and function. Doppler and Color Flow revealed no significant aortic regurgitation. There is no significant aortic valvular stenosis. There is no aortic valvular v egetation. MITRAL VALVE The mitral valve is normal in structure and function. There is no evidence of mitral valve prolapse. There is no mitral valve stenosis. Doppler and Color-flow revealed trace mitral regurgitation. TRICUSPID VALVE The tricuspid valve is normal in structure and function. Doppler and Color Flow revealed trace tricus pid regurgitation. There is no tricuspid valve prolapse or vegetation. There is no tricuspid valve st enosis. PULMONIC VALVE Doppler and Color Flow revealed no pulmonic valvular regurgitation. There is no pulmonic valvular jan nosis. GREAT VESSELS The aortic root is normal in size. The ascending aorta is normal in size. The IVC is normal in size a nd collapses >50% with inspiration. PERICARDIAL EFFUSION There is no pleural effusion. There is no evidence of significant pericardial effusion. Critical Notification Critical Value: No <Conclusion> The left ventricular systolic function is normal and the ejection fraction is within normal range. EF 55% There is normal LV segmental wall motion. Signed by : Junior Garay, Electronically Approved : 08/06/2021 17:37:36
== END ==
LOC: NM 08:06
PROVIDERS: ATTEND Internal Medicine Cardiovascular Disease
DX: I21.4 Non-ST elevation (NSTEMI) myocardial infarction (principal); I51.7 Cardiomegaly
CPT/HCPCS: 78452; 93017; 93306; A9500; J2785